=== PATIENT | female | born 1950 | race Caucasian/White ===

== ENCOUNTER 2016-12-26 11:57 | Emergency (ER) | payer MEDICAID ==
[2016-12-26] MEDS ORDERED: HYDROmorphone 1 MG/ML SYRINGE IVP STA (12:36)
[2016-12-26] MEDS ORDERED: ONDANSETRON 4 MG/2 ML VIAL IVP STA (12:36)
[2016-12-26] MEDS ORDERED: ONDANSETRON 4 MG/2 ML VIAL ONE (13:05)
[2016-12-26] MEDS ORDERED: HYDROmorphone 1 MG/ML SYRINGE ONE (13:05)
== END 2016-12-26 14:37 | disposition home or self-care (01) ==
DX: R10.31 Right lower quadrant pain (principal); I10 Essential (primary) hypertension
CPT/HCPCS: 36415; 74177; 80053; 81003; 83690; 85025; 96374; 96375; 99283; 99284; J1170

== ENCOUNTER 2017-04-22 18:26 | Emergency (ER) | payer MEDICAID ==
[2017-04-22] MEDS ORDERED: HYDROmorphone 1 MG/ML SYRINGE IVP STA (20:04)
[2017-04-22] MEDS ORDERED: PROMETHAZINE 25 MG/1 ML VIAL IM STA (20:04)
[2017-04-22] MEDS ORDERED: DEXAMETHASONE 10 MG/ML VIAL PO STA (20:04)
[2017-04-22] MEDS ORDERED: DEXAMETHASONE 10 MG/ML VIAL ONE (20:09)
[2017-04-22] MEDS ORDERED: PROMETHAZINE 25 MG/1 ML VIAL ONE (20:09)
[2017-04-22] MEDS ORDERED: HYDROmorphone 1 MG/ML SYRINGE ONE ×2 (20:09→21:21)
[2017-04-22] MEDS ORDERED: HYDROmorphone 1 MG/ML SYRINGE IM STA ×2 (20:16→21:18)
--- NOTE | 2017-04-22 21:48 | ED Physician Documentation ---
PD HPI BACK PAIN - Stated complaint Stated Complaint: BACK PX - Chief complaint Chief Complaint: Back Pain - History obtained from History obtained from: Patient - History of Present Illness Timing - onset: Today Timing - details: Still present Location: Lower Quality: Pain, Similar to prior episodes Associated symptoms: No: Fever, Weakness, Numbness, Incontinent of urine Worsened by: Movement Similar symptoms before: Diagnosis (degenerative disc disease) - Treatment prior to arrival Treatment prior to arrival: Flexeril - Additional information Additional information: The patient is a 66-year-old female who presents with low back pain that started this morning, and has persisted throughout the day. She denies any recent traumatic injury, or activity different from usual. She denies fever, numbness, weakness, dysuria, or urinary incontinence. She has taken Flexeril without relief. She has undergone workup in the past for similar symptoms and has been diagnosed with degenerative disc disease. She was last seen here with similar symptoms about 6 months ago. Review of Systems Constitutional: denies: Fever Nose: denies: Congestion Throat: denies: Sore throat Cardiac: denies: Chest pain / pressure Respiratory: denies: Dyspnea, Cough GI: denies: Abdominal Pain, Nausea, Vomiting : denies: Dysuria, Incontinent Skin: denies: Rash Musculoskeletal: reports: Back pain. denies: Neck pain, Extremity swelling Neurologic: denies: Focal weakness, Numbness, Headache PD PAST MEDICAL HISTORY - Past Medical History Cardiovascular: Hypertension Musculoskeletal: Chronic back pain - Past Surgical History Past Surgical History: Yes General: Cholecystectomy Ortho: Spine surgery /[employer]: Hysterectomy - Present Medications Home Medications: Ambulatory Orders Medication Instructions Recorded Confirmed Cyclobenzaprine [Flexeril] 10 mg PO TID PRN #20 tablet 11/09/16 04/22/17 amLODIPine [Norvasc] 10 mg PO DAILY 11/09/16 04/22/17 Cyclobenzaprine [Flexeril] 10 mg PO TID PRN #20 tablet 04/22/17 HYDROcod/ACETAM 5/325 [[place] 5/325] 1 - 2 ea PO Q6H PRN #15 tablet 04/22/17 - Allergies Allergies/Adverse Reactions: Allergies Allergy/AdvReac Type Severity Reaction Status Date / Time naproxen [From Naprosyn] Allergy hyperventil Verified 04/22/17 18:43 ates - Social History Does the pt smoke?: No Smoking Status: Never smoker Does the pt drink ETOH?: Yes Does the pt have substance abuse?: No - Immunizations Immunizations are current?: Yes - POLST Patient has POLST: No PD ED PE NORMAL - Vitals Vital signs reviewed: Yes (hypertensive) - General General: Alert and oriented X 3, Other (overweight) - HEENT HEENT: Atraumatic, Pharynx benign - Neck Neck: No bony TTP, No adenopathy, No JVD - Cardiac Cardiac: RRR, No murmur - Respiratory Respiratory: No respiratory distress, Clear bilaterally - Abdomen Abdomen: Soft - Back Back: No CVA TTP, No spinal TTP, Other (Tenderness to palpation in the paralumbar musculature bilaterally. No tenderness to palpation along the spinous processes.) - Derm Derm: No rash - Extremities Extremities: No edema, No calf tenderness / cord, Other (Straight leg raise test is negative bilaterally.) - Neuro Neuro: Alert and oriented X 3, No motor deficit, No sensory deficit Results - Vitals Vitals: Oxygen O2 Source Room air PD MEDICAL DECISION MAKING - ED course Complexity details: reviewed old records, re-evaluated patient, considered differential, d/w patient, d/w family ED course: The patient's presentation is most consistent with acute exacerbation of recurrent low back pain. Her presentation does not suggest epidural abscess, cauda equina syndrome, or spinal stenosis. Treatment in the emergency department included administration of dexamethasone 10 mg orally, Phenergan 12.5 mg IM, and hydromorphone 1 mg IM 2. Her symptoms markedly improved with the above treatment. She is being discharged with prescription for Flexeril and Vicodin, 15 tablets. I discussed with her symptomatic treatment, outpatient follow-up, as well as potentially worrisome signs or symptoms that should prompt reevaluation in the emergency department. Departure - Departure Disposition: 01 Home, Self Care Clinical Impression: Back pain Qualifiers: Back pain location: low back pain Chronicity: acute Back pain laterality: bilateral Sciatica presence: without sciatica Qualified Code(s): M54.5 - Low back pain Condition: Stable Instructions: ED Spasm Back No Trauma Follow-Up: Bam Barajas MD [Primary Care Provider] - Prescriptions: Cyclobenzaprine [Flexeril] 10 mg PO TID PRN #20 tablet PRN Reason: Spasms HYDROcod/ACETAM 5/325 [[place] 5/325] 1 - 2 ea PO Q6H PRN #15 tablet PRN Reason: Pain Comments: Apply icepack to your lower back intermittently for the next 3 or 4 days. You can use Vicodin as prescribed if needed for pain. You can use Flexeril as prescribed as needed for muscle spasms. Let pain be your guide to activity level. Follow up with your primary physician within 2 weeks. Call to schedule an appointment. Return to the emergency department if you develop increasing pain, fever, or otherwise worsening symptoms. Discharge Date/Time: 04/22/17 21:54
[2017-04-22 21:53] VITALS: BP 159/85
== END 2017-04-22 21:54 | disposition home or self-care (01) ==
LOC: ED 18:26
DX: M54.5 Low back pain (principal); M51.36 Other intervertebral disc degeneration, lumbar region; E66.3 Overweight; I10 Essential (primary) hypertension; Z68.31 Body mass index [BMI] 31.0-31.9, adult
CPT/HCPCS: 96372; 99283; J1170

== ENCOUNTER 2017-05-24 09:53 | Outpatient (CLI) | payer MEDICAID ==
[2017-05-24 13:34] LABS: BASOPHILS # (AUTO) 0.1 10^3/uL (0.0-0.1); EOSINOPHILS # (AUTO) 0.1 10^3/uL (0.0-0.7); HGB - HEMOGLOBIN 13.8 g/dL (12.0-16.0); LYMPHOCYTES # (AUTO) 1.9 10^3/uL (1.5-3.5); MEAN CORPUSCULAR VOLUME 82.8 fL (81.0-99.0); MONOCYTES # (AUTO) 0.6 10^3/uL (0.0-1.0)
[2017-05-24 13:36] LABS: BASOPHILS % (AUTO) 1.1 %; EOSINOPHILS % (AUTO) 1.4 %; HCT - HEMATOCRIT 40.6 % (37.0-47.0); LYMPHOCYTES % (AUTO) 30.3 %; MEAN CORPUSCULAR HEMOGLOBIN 28.2 pg (27.0-31.0); MEAN PLATELET VOLUME 8.5 fL (7.9-10.8); MONOCYTES % (AUTO) 9.5 %; NEUTROPHILS # (AUTO) 3.5 10^3/uL (1.5-6.6); NEUTROPHILS % (AUTO) 57.7 %; NUCLEATED RED BLOOD CELLS AUTO 0.1 /100WBC; RED CELL DISTRIBUTION WIDTH 14.3 % (12.0-15.0); UNCORRECTED WHITE BLOOD COUNT 6.1 x10^3/uL; WHITE BLOOD COUNT 6.1 x10^3/uL (4.8-10.8)
[2017-05-24 13:56] LABS: ALBUMIN/GLOBULIN RATIO 1.4 (1.0-2.2); BILIRUBIN,TOTAL 0.8 mg/dL (0.2-1.0); BUN - BLOOD UREA NITROGEN 22 mg/dL (6-20); CALCIUM 9.4 mg/dL (8.5-10.3); CARBON DIOXIDE - CO2 23 mmol/L (21-32); CHLORIDE 103 mmol/L (101-111); CHOL/HDL RATIO 4.4 (<4.4); CHOLESTEROL 218 mg/dL; CREATININE 0.5 mg/dL (0.4-1.0); GFR - MDRD 124 (>89); GLUCOSE 116 mg/dL (70-100); HDL CHOLESTEROL 49 mg/dL; LDL/HDL RATIO 3.1 (<4.4); POTASSIUM 3.4 mmol/L (3.5-5.0); SODIUM 135 mmol/L (135-145); TOTAL PROTEIN 7.5 g/dL (6.7-8.2); TRIGLYCERIDES 84 mg/dL; VLDL CHOLESTEROL 17 mg/dL
== END 2017-05-24 09:54 | disposition home or self-care (01) ==
LOC: LAB.N 09:53
PROVIDERS: ATTEND Family Medicine
DX: I10 Essential (primary) hypertension (principal)
CPT/HCPCS: 36415; 80050; 80061

== ENCOUNTER 2018-02-07 15:02 | Outpatient (CLI) | payer MEDICARE, MEDICAID ==
[2018-02-07 19:23] LABS: CALCIUM 9.4 mg/dL (8.5-10.3); CREATININE 0.8 mg/dL (0.4-1.0)
== END 2018-02-07 15:03 | disposition home or self-care (01) ==
LOC: LAB.N 15:02
PROVIDERS: ATTEND Family Medicine
DX: E87.6 Hypokalemia (principal); I10 Essential (primary) hypertension
CPT/HCPCS: 36415; 80048

== ENCOUNTER 2018-06-12 14:35 | Outpatient (CLI) | payer MEDICARE, MEDICAID ==
[2018-06-12 19:15] LABS: ALBUMIN 3.9 g/dL (3.2-5.5); ALBUMIN/GLOBULIN RATIO 1.1 (1.0-2.2); ALKALINE PHOSPHATASE 66 IU/L (42-121); ALT ALANINE AMINOTRANSFERASE 18 IU/L (10-60); AST ASPARTATE AMINOTRANSFERASE 24 IU/L (10-42); BILIRUBIN,TOTAL 0.6 mg/dL (0.2-1.0); BUN - BLOOD UREA NITROGEN 12 mg/dL (6-20); CALCIUM 9.1 mg/dL (8.5-10.3); CARBON DIOXIDE - CO2 27 mmol/L (21-32); CHLORIDE 104 mmol/L (101-111); CHOL/HDL RATIO 5.5 (<4.4); CHOLESTEROL 226 mg/dL; CREATININE 0.6 mg/dL (0.4-1.0); GFR - MDRD 100 (>89); GLUCOSE 79 mg/dL (70-100); HDL CHOLESTEROL 41 mg/dL; LDL CHOLESTEROL,CALCULATED 152 mg/dL; LDL/HDL RATIO 3.7 (<4.4); SODIUM 138 mmol/L (135-145); TOTAL PROTEIN 7.4 g/dL (6.7-8.2); VLDL CHOLESTEROL 33 mg/dL
== END 2018-06-12 14:36 ==
LOC: LAB.N 14:35
PROVIDERS: ATTEND Family Medicine
DX: I10 Essential (primary) hypertension (principal); Z51.81 Encounter for therapeutic drug level monitoring
CPT/HCPCS: 36415; 80053; 80061; 83721

== ENCOUNTER 2018-12-09 17:59 | Outpatient (CLI) | payer MEDICARE, MEDICAID | END 2018-12-09 18:00 | disposition critical access hospital (66) | LOC: EMS 17:59 | PROVIDERS: ATTEND Surgery | DX: M62.81 Muscle weakness (generalized) (principal); R29.810 Facial weakness | CPT/HCPCS: A0425; A0429 ==

== ENCOUNTER 2018-12-09 18:15 | Emergency (ER) | payer MEDICARE, MEDICAID ==
[2018-12-09] MEDS ORDERED: ASPIRIN CHEW 81 MG TABLET PO STA (18:26)
[2018-12-09 18:35] LABS: BASOPHILS # (AUTO) 0.1 10^3/uL (0.0-0.1); BASOPHILS % (AUTO) 0.6 %; HGB - HEMOGLOBIN 15.1 g/dL (12.0-16.0); LYMPHOCYTES # (AUTO) 1.1 10^3/uL (1.5-3.5); LYMPHOCYTES % (AUTO) 11.5 %; MEAN CORPUSCULAR HEMOGLOBIN 28.4 pg (27.0-31.0); MEAN CORPUSCULAR HGB CONC 32.8 g/dL (32.0-36.0); MEAN CORPUSCULAR VOLUME 86.6 fL (81.0-99.0); MONOCYTES # (AUTO) 0.7 10^3/uL (0.0-1.0); MONOCYTES % (AUTO) 7.1 %; NEUTROPHILS % (AUTO) 80.8 %; PLT - PLATELET COUNT 269 10^3/uL (130-450); RED BLOOD COUNT 5.31 10^6/uL (4.20-5.40); WHITE BLOOD COUNT 9.9 x10^3/uL (4.8-10.8)
[2018-12-09 18:47] LABS: ALBUMIN 4.2 g/dL (3.2-5.5); ALBUMIN/GLOBULIN RATIO 1.2 (1.0-2.2); BILIRUBIN,TOTAL 0.6 mg/dL (0.2-1.0); CALCIUM 9.9 mg/dL (8.5-10.3); CREATININE 0.5 mg/dL (0.4-1.0); INR 1.1 (0.8-1.2); TOTAL PROTEIN 7.7 g/dL (6.7-8.2)
[2018-12-09] MEDS ORDERED: IOVERSOL 320 100 ML VIAL IVP ONE ×2 (18:50→19:18)
--- NOTE | 2018-12-09 19:33 | CT Report ---
Reason: Left sided weakness Procedure Date: 12/09/2018 Accession Number: [id number] / [id number] Procedure: CT - Head W/O CPT Code: FULL RESULT: EXAM: CT HEAD WITHOUT CONTRAST. EXAM DATE: 12/09/2018 07:10 PM. CLINICAL HISTORY: Left-sided weakness. COMPARISON: CT scan of the head without contrast 07/16/2010. TECHNIQUE: Multiaxial CT images were obtained from the foramen magnum to the vertex. Reformats: Sagittal and coronal. IV contrast: None. In accordance with CT protocol optimization, one or more of the following dose reduction techniques were utilized for this exam: automated exposure control, adjustment of mA and/or KV based on patient size, or use of iterative reconstructive technique. FINDINGS: The imaged portions of the paranasal sinuses are normally aerated. The bilateral mastoid air cells are normally aerated. There is no acute fracture of the calvaria. There is loss of monzon-white differentiation within the right lentiform nucleus extending into the anterior limb of the right internal capsule, right caudate nucleus and the right external capsule and extending into the right striate cortex (20, 2). This is suspicious for an area of early subacute cerebral infarction. Recommend correlation with onset of the patient's clinical symptoms. The ventricular size is normal. There was no evidence of overt hemorrhagic transformation within this area of suspected cerebral infarction. The ASPECTS score is 6. IMPRESSION: 1. There is loss of monzon-white differentiation within the right lentiform nucleus, anterior limb of the right internal capsule, right caudate nucleus, right external capsule, and right striate cortex suspicious for an area of early subacute cerebral infarction. 2. The ASPECTS score is 6. The critical result notification system was initiated by Dr. Gumaro Antoine at 19:29 hrs on 12/09/18. The above findings were discussed with Zheng Leslie by Dr. Gumaro Antoine at 19:31 hrs on 12/09/18.
--- NOTE | 2018-12-09 19:38 | XRAY Report ---
Reason: Chest Pain Procedure Date: 12/09/2018 Accession Number: [id number] / [id number] Procedure: XR - Chest 1 View X-Ray CPT Code: 19472 FULL RESULT: EXAM: CHEST RADIOGRAPHY EXAM DATE: 12/09/2018 07:08 PM. CLINICAL HISTORY: Chest Pain. COMPARISON: None. TECHNIQUE: 1 view. FINDINGS: Lungs/Pleura: No focal opacities evident. No pleural effusion. No pneumothorax. Mediastinum: Within exam limitations, the cardiomediastinal contour is normal. Other: None. IMPRESSION: Normal single view chest. RADIA
--- NOTE | 2018-12-09 19:52 | CT Report ---
Reason: L sided facial droop, L neck pain Procedure Date: 12/09/2018 Accession Number: [id number] / [id number] Procedure: CT - Neck Angio CPT Code: FULL RESULT: EXAM: CT ANGIOGRAM NECK. EXAM DATE: 12/09/2018 07:16 PM. CLINICAL HISTORY: Left-sided facial droop, left neck pain. COMPARISON: None. TECHNIQUE: Routine axial helical imaging was performed from the skull base through the aortic arch. Reconstructions: Routine multiplanar 3D MIP reconstructions. IV Contrast: 80 mL OPTIRAY 320. Evaluation of arterial stenosis is based on a NASCET method of measurement. In accordance with CT protocol optimization, one or more of the following dose reduction techniques were utilized for this exam: automated exposure control, adjustment of mA and/or KV based on patient size, or use of iterative reconstructive technique. FINDINGS: There is respiratory motion superimposed on the images of the lung apices. There is subsegmental atelectasis demonstrated within the bilateral lung apices. There are surgical changes of anterior fusion from C3-C4. There are multilevel moderate degenerative changes of the cervical spine. The bilateral mastoid air cells are normally aerated. The imaged portions of the paranasal sinuses are normally aerated. The imaged portions of the orbits are normal in appearance. The right and left parotid spaces enhance symmetrically. The service sprinkler helper spaces exhibit symmetric densities. The openings of the eustachian tubes are normally aerated. The torus tubarius are symmetric. The fossa of Rosenmuller are normally aerated bilaterally. The palatine tonsils exhibit symmetric hypertrophy. The extrinsic and the intrinsic muscles of the tongue exhibit symmetric densities. There is no significant adenopathy in the level IA davonte chain. There is no significant adenopathy within the bilateral level IB davonte chains. The bilateral submandibular glands exhibit symmetric size and enhancement. The vallecula are symmetric. The free and fixed margins of the epiglottis are normal in appearance. The preepiglottic space and paraglottic spaces exhibit normal fat densities. The false and true cords are normal in appearance. The subglottic space is normal. The bilateral thyroid lobes enhance symmetrically. There is dense calcific plaquing of the origin of the great vessels. There is between 25-50% stenosis at the origin of the left subclavian artery. There is no significant adenopathy by size criteria in the bilateral deep cervical or spinal accessory chains. There is a combination of soft and calcific plaquing present at the right carotid bifurcation. There is hypodensity likely reflecting an area of mural thrombus present at the level of the right carotid bulb extending superiorly into the proximal right extracranial internal carotid artery and extending superiorly to the distal right extracranial internal carotid artery. There is also reduction of the caliber of the vessel compared to the left. This combination of findings is suspicious for a possible dissection with areas of thrombosis versus an elongated eccentric thrombus demonstrated along the posterior wall of the right carotid bulb and proximal extracranial right internal carotid artery. There is a short segment of focal narrowing of the distal extracranial right internal carotid artery measuring up to 50% (283, 2). This could represent either a small focus of soft plaquing versus possibly a short segment of dissection. There is of a small focus of calcific plaquing of the left carotid bifurcation producing less than 25% stenosis. The left carotid bulb is without flow limiting stenosis. The proximal extracranial left internal carotid artery exhibits a small area of soft plaquing producing a less than 25% stenosis using NASCET criteria. The right vertebral artery V1, V2, V3 segments are without flow limiting stenosis. There is mild narrowing at the origin of the left vertebral artery measuring between 25-50%. The left V2 and V3 segments of the left vertebral artery are without flow limiting stenosis. IMPRESSION: 1. There is an area of mural thrombus demonstrated along the posterior aspect of the right carotid bulb and the proximal extracranial right internal carotid artery which may be secondary to underlying dissection versus less likely an elongated eccentric thrombus. Given the irregularity of the vessel and the reduced caliber of the right carotid within the neck a dissection with areas of subsequent thrombus would be favored. Recommend correlation. 2. There is less than 25% stenosis from calcific plaquing at the left carotid bifurcation. The above critical findings were discussed with the ordering physician Dr. Zheng Leslie by Dr. Antoine at 7:47 PM on 12/09/2018.
--- NOTE | 2018-12-09 20:18 | CT Report ---
Reason: Left sided weakness Procedure Date: 12/09/2018 Accession Number: [id number] / [id number] Procedure: CT - Head Angio CPT Code: FULL RESULT: EXAM: CT ANGIOGRAM HEAD. CT SCAN OF THE HEAD WITH CONTRAST. EXAM DATE: 12/09/2018 07:13 PM CLINICAL HISTORY: Left-sided weakness. COMPARISON: CTA of the neck performed earlier on the same day and CT scan of the head without contrast performed earlier on the same day. TECHNIQUE: - CT Scan Head: Using a multidetector scanner, axial images were acquired from the foramen magnum to the skull vertex prior to and following contrast administration. - CT Angiogram: Using a multidetector scanner, high-resolution axial images were acquired from the skull base through vertex following rapid infusion of intravenous contrast. Reformats: Multiplanar MIP reformats were reconstructed. Nascet criteria used for stenosis measurement. IV Contrast: 80 mL OPTIRAY 320. In accordance with CT protocol optimization, one or more of the following dose reduction techniques were utilized for this exam: automated exposure control, adjustment of mA and/or KV based on patient size, or use of iterative reconstructive technique. FINDINGS: CT scan of the head with contrast: The images are degraded by motion. There is normal enhancement within the deep venous sinuses. There are areas of suggested hyperdensity within the left frontal convexity (19-22). This appears to be secondary to volume averaging due to the superimposed areas of motion. There is no hyperdensity demonstrated on the accompanying noncontrast CT of the head. There is normal enhancement within the deep venous sinuses. CTA of the head: The right vertebral artery intradural segment is smooth and nonstenotic. The left vertebral artery intradural segment is smooth and nonstenotic. The right posterior inferior cerebellar artery is without flow-limiting stenosis. The left vertebral artery intradural segment is smooth and nonstenotic. The left posterior-inferior cerebellar artery is without flow-limiting stenosis. The right anterior inferior cerebellar artery is smooth and nonstenotic. The left anterior inferior cerebellar artery is smooth and nonstenotic. The basilar artery is without flow-limiting stenosis. The right superior cerebellar artery is without flow-limiting stenosis. The left superior cerebellar artery is without flow-limiting stenosis. The right intracranial internal carotid artery exhibits irregularity and reduced caliber compared to the left intracranial internal carotid artery. This may reflect changes of a dissection. There is calcific plaquing of the right cavernous intracranial internal carotid artery as well as the right supraclinoid segment producing multiple areas of stenosis measuring 25% to slightly greater. The left intracranial internal carotid artery is smooth and nonstenotic. There is thrombosis of the right M1 segment of the right middle cerebral artery. However there does appear to be enhancement within the proximal right insular branches of the right middle cerebral artery. This may be secondary to collateral flow. The left M1 and proximal M2 segments of the left middle cerebral artery are smooth and nonstenotic. There is a hypoplastic right A1 segment of the right anterior cerebral artery. The left A1 segment is smooth and nonstenotic. There is a small anterior communicating artery. The right A2 segment of the right anterior cerebral artery is smooth and nonstenotic. The left A2 segment of the left anterior cerebral artery is smooth and nonstenotic. There is normal enhancement within the deep venous sinuses. IMPRESSION: 1. 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 There is irregularity of the right intracranial internal carotid artery as well as the right extracranial internal carotid artery and there are areas of mural thrombus beginning from the right carotid bulb extending to the mid right extracranial internal carotid artery. 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 The dissection would extend from the right carotid bulb to the distal right supraclinoid segment. 2. There is no evidence of cerebral aneurysm. The above critical findings were discussed with the ordering physician Dr. Zheng Leslie by Dr. Antoine at 7:47 PM on 12/09/2018.
[2018-12-09] MEDS ORDERED: SODIUM CHLORIDE 0.9% 500 ML IV ONE (20:20)
--- NOTE | 2018-12-09 20:53 | ED Physician Documentation ---
PD HPI FOCAL NEURO - Stated complaint Stated Complaint: Left sided weakness - Chief complaint Chief Complaint: Neuro - History obtained from History obtained from: Patient - History of Present Illness Timing - onset: Other (Patient last normal was 22 hours ago) Timing - duration: Hours (22) Timing - details: Abrupt onset Time of symptom onset unknown: Time of onset unknown Severity of deficit: Moderate Weakness: Face, Arm, Leg, Left Numbness: No: Face, Arm, Hand Associated symptoms: Fall. No: Headache, Nausea / vomiting, Seizure, Syncope, Other Contributing factors: negative: Anticoagulated, Vascular dz, Atrial fibrillation Baseline status: positive: A&OX3, ambulatory, indep (Patient went to bed normal, woke up with left sided weakness, fell getting out of bed. Called EMS in the afternoon because she had not been able to get up.) Review of Systems Ten Systems: 10 systems reviewed and negative Constitutional: reports: Reviewed and negative Eyes: reports: Reviewed and negative Ears: reports: Reviewed and negative Nose: reports: Reviewed and negative Throat: reports: Reviewed and negative Cardiac: reports: Reviewed and negative Respiratory: reports: Reviewed and negative GI: reports: Reviewed and negative : reports: Reviewed and negative Skin: reports: Reviewed and negative Musculoskeletal: reports: Reviewed and negative Neurologic: reports: Focal weakness Psychiatric: reports: Reviewed and negative Endocrine: reports: Reviewed and negative Immunocompromised: reports: Reviewed and negative PD PAST MEDICAL HISTORY - Past Medical History Cardiovascular: Hypertension Musculoskeletal: Chronic back pain - Past Surgical History Past Surgical History: Yes General: Cholecystectomy 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 - Present Medications Home Medications: Ambulatory Orders Medication Instructions Recorded Confirmed amLODIPine [Norvasc] 10 mg PO DAILY 11/09/16 09/29/17 Cyclobenzaprine [Flexeril] 10 mg PO TID PRN #20 tablet 04/22/17 09/29/17 Hydrochlorothiazide 12.5 mg pe PO DAILY 09/29/17 09/29/17 Lidocaine Patch 5% [Lidoderm Patch] 1 patch TOP DAILY PRN #10 patch 09/29/17 Meloxicam [Mobic] 15 mg PO DAILY PRN #20 tablet 09/29/17 - Allergies Allergies/Adverse Reactions: Allergies Allergy/AdvReac Type Severity Reaction Status Date / Time naproxen [From Naprosyn] Allergy hyperventil Verified 12/09/18 18:29 ates - Living Situation Living Situation: reports: Alone Living Arrangement: reports: At home - Social History Does the pt smoke?: No Smoking Status: Never smoker Does the pt drink ETOH?: Yes Does the pt have substance abuse?: No - Family History Family history: reports: Other (Reviewed and not relevant) - Immunizations Immunizations are current?: Yes - POLST Patient has POLST: No PD ED PE NORMAL - Vitals Vital signs reviewed: Yes - General General: Alert and oriented X 3, No acute distress - HEENT HEENT: PERRL - Neck Neck: Supple, no meningeal sign - Cardiac Cardiac: RRR, No murmur - Respiratory Respiratory: Clear bilaterally - Abdomen Abdomen: Normal bowel sounds, Soft, Non tender, Non distended - Derm Derm: Warm and dry - Extremities Extremities: No deformity - Neuro Neuro: Alert and oriented X 3, Other (Left facial droop, LUE and RUE weak to gravity, NIHSS of 8) - Psych Psych: Normal mood, Normal affect NIHSS - Time Time: 22:00 (Went to bed normal last night) - Level of Consciousness Level of consciousness: (0) Alert, Keenly responsive LOC Questions: (0) Answers both Q's correct LOC Commands: (0) Performs both correctly - Gaze Best Gaze: (0) Normal - Visual Visual: (0) No loss - Facial Palsy Facial Palsy: (2) Partial paralysis - Motor Arms (both separate) Motor Arm (right): (0) No drift Motor Arm (left): (2) Some effort against gravity - Motor Legs (both separate) Motor Leg (right): (0) No drift Motor Leg (left): (2) Some effort against gravity - Limb Ataxia Limb Ataxia: (1) Present in 1 limb - Sensory Sensory: (0) Normal - Best Language Best Language: (0) No aphasia - Dysarthria Dysarthria: (1) [id number] dysarthria - Extinction and Inattention (formally neg Extinction and inattention: (0) No abnormality - Total Score/Results Total Score/Result: 8 Results - Vitals Vitals: Vital Signs - 24 hr 12/09/18 12/09/18 12/09/18 18:16 19:20 19:36 Temperature 37.2 C Heart Rate 110 H 106 H 96 Respiratory 16 20 19 Rate Blood Pressure 143/98 H 142/87 H 142/87 H O2 Saturation 100 99 99 12/09/18 20:30 Temperature Heart Rate 117 H Respiratory 18 Rate Blood Pressure 151/77 H O2 Saturation 100 Oxygen O2 Source Room air - EKG (time done) 1827 Rhythm: Sinus tachycardia [place]: Normal Intervals: Normal MO QRS: Normal Ischemia: Normal ST segments. No: T wave inversion - Labs Labs: Laboratory Tests 12/09/18 12/09/18 12/09/18 18:20 18:20 18:20 WBC 9.9 RBC 5.31 Hgb 15.1 Hct 46.0 MCV 86.6 MCH 28.4 MCHC 32.8 RDW 14.0 Plt Count 269 MPV 8.0 Neut # (Auto) 8.0 H Lymph # (Auto) 1.1 L [place] # (Auto) 0.7 Eos # (Auto) 0.0 Baso # (Auto) 0.1 Absolute Nucleated RBC 0.00 Nucleated RBC % 0.0 PT INR APTT Sodium 137 Potassium 4.1 Chloride 104 Carbon Dioxide 25 Anion Gap 8.0 BUN 11 Creatinine 0.5 Estimated GFR (MDRD) 124 Glucose 118 H Calcium 9.9 Total Bilirubin 0.6 AST 33 ALT 19 Alkaline Phosphatase 72 Troponin I < 0.04 Total Protein 7.7 Albumin 4.2 Globulin 3.5 Albumin/Globulin Ratio 1.2 Lipase 22 12/09/18 18:20 WBC RBC Hgb Hct MCV MCH MCHC RDW Plt Count MPV Neut # (Auto) Lymph # (Auto) [place] # (Auto) Eos # (Auto) Baso # (Auto) Absolute Nucleated RBC Nucleated RBC % PT 12.0 INR 1.1 APTT 28.5 Sodium Potassium Chloride Carbon Dioxide Anion Gap BUN Creatinine Estimated GFR (MDRD) Glucose Calcium Total Bilirubin AST ALT Alkaline Phosphatase Troponin I Total Protein Albumin Globulin Albumin/Globulin Ratio Lipase PD MEDICAL DECISION MAKING - ED course Complexity details: reviewed old records, reviewed results, re-evaluated patient, considered differential, d/w patient, d/w 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 Patient has a history of high blood pressure only. Patient went to bed normal and woke up with symptoms this morning and fell getting out of bed. Patient given full dose of aspirin. 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 Patient is not a TPA candidate due to dissection as well as time course. Stroke neurology Dr. Wade Solorzano at [facility] was consulted who recommended 500 bolus of normal saline, no TPA, aspirin, immediate transfer. Patient transferred by air. - Critical Care Time(min): 30 Time Includes: Direct patient care, Review records, Reassess patient, Document care, Coordinate care, Medical consult, See progress note Data interpretation: Labs, Pulse ox, Cardiac output, See progress note Procedures included in critical care time: See progress note Procedures excluded from critical care time: See progress note - TPA CVA checklist Inclusion crititeria: negative: Onset know < 4.5 hr Departure - Departure Disposition: 02 Transfer Acute Care Hosp Clinical Impression: Carotid artery dissection Cerebrovascular accident (CVA) Qualifiers: CVA mechanism: embolism Precerebral and cerebral artery: middle cerebral artery Laterality of affected vessel: right Qualified Code(s): I63.411 - Cerebral infarction due to embolism of right middle cerebral artery Condition: Critical
[2018-12-09 22:01] VITALS: BP 145/67
--- NOTE | 2018-12-09 23:02 | CT Report ---
Reason: Stroke monitoring Procedure Date: 12/09/2018 Accession Number: [id number] / [id number] Procedure: CT - Head W/O CPT Code: FULL RESULT: EXAM: CT HEAD EXAM DATE: 12/09/2018 10:36 PM. CLINICAL HISTORY: Right basal ganglia infarct. COMPARISON: CT HEAD ANGIO 12/09/2018 6:47 PM, CT HEAD W/O 12/09/2018 6:47 PM. TECHNIQUE: Multiaxial CT images were obtained from the foramen magnum to the vertex. Reformats: Sagittal and coronal. IV contrast: None. In accordance with CT protocol optimization, one or more of the following dose reduction techniques were utilized for this exam: automated exposure control, adjustment of mA and/or KV based on patient size, or use of iterative reconstructive technique. FINDINGS: Parenchyma: Loss of monzon-white matter differentiation is again demonstrated in the right basal ganglia, consistent with an acute right MCA territory infarct. No definite hemorrhagic transformation of the infarct is seen. The extent of the infarct appears stable compared to the brain CT from earlier today. The monzon-white matter differentiation remains distinct elsewhere in the brain. Extraaxial Spaces: Normal for age. No subdural or epidural collections identified. Ventricles: The ventricles and cortical sulci are mildly enlarged, consistent with age-related tissue loss. Right-sided cerebral edema causes narrowing of the right lateral ventricle without midline shift. These findings are stable. Sinuses and orbits: Imaged paranasal sinuses, orbits, and mastoids show no significant abnormality. Bones: No evidence of fracture or calvarial defect. Other: Mild intracranial atherosclerosis is present. IMPRESSION: 1. Stable appearance and configuration of the right basal ganglia infarct. 2. Mild narrowing of the right lateral ventricle is again noted without midline shift. 3. No hemorrhagic transformation of the infarct is seen. RADIA
== END 2018-12-09 22:48 | disposition short-term general hospital (02) ==
LOC: EDUNIT# → ED 18:15
DX: I77.71 Dissection of carotid artery (principal); I63.411 Cerebral infarction due to embolism of right middle cerebral artery; I48.91 Unspecified atrial fibrillation; I10 Essential (primary) hypertension
CPT/HCPCS: 36415; 70450; 70496; 70498; 71045; 80053; 83690; 84484; 85025; 85610; 85730; 93005; 96360; 99284; 99291; A9270; Q9967; 99285

== ENCOUNTER 2018-12-09 22:52 | Outpatient (CLI) | payer MEDICARE, MEDICAID | END 2018-12-09 22:53 | disposition short-term general hospital (02) | LOC: EMS 22:52 | PROVIDERS: ATTEND Surgery | DX: I77.71 Dissection of carotid artery (principal) | CPT/HCPCS: A0425; A0426 ==

== ENCOUNTER 2018-12-27 20:58 | Outpatient (CLI) | payer MEDICARE, MEDICAID | END 2018-12-27 20:59 | disposition critical access hospital (66) | LOC: EMS 20:58 | PROVIDERS: ATTEND Surgery | DX: S01.111A Laceration without foreign body of right eyelid and periocular area, initial encounter (principal); M25.522 Pain in left elbow; M25.521 Pain in right elbow; M25.561 Pain in right knee; W10.8XXA Fall (on) (from) other stairs and steps, initial encounter; Y92.039 Unspecified place in apartment as the place of occurrence of the external cause | CPT/HCPCS: A0425; A0429 ==

== ENCOUNTER 2018-12-27 21:15 | Emergency (ER) | payer MEDICARE, MEDICAID ==
[2018-12-27] MEDS ORDERED: ACETAMINOPHEN 325 MG TABLET PO STA (21:26)
--- NOTE | 2018-12-27 21:40 | ED Physician Documentation ---
PD HPI Fall - Stated complaint Stated Complaint: FALL/8 STAIRS - Chief complaint Chief Complaint: Trauma Hd/Nk - History obtained from History obtained from: Patient, EMS - History of Present Illness Mechanism of injury: Slipped (fell down stairs) Fall distance: Other (on stairs) Where injury occurred: Home Timing - onset: How many hours ago (1) Injury(ies) location: Head. No: Neck, Chest, Abdomen, Back, Right Upper Extremity, Left Uppper Extremity, Right Lower Extremity, Left Lower Extremity, Right Hand, Left Hand, Right Foot, Left Foot Pain level max: 3 Pain level now: 3 Quality of pain: Pain, Aching Associated symptoms: No: LOC, AMS, Amnesia, Seizures, Ear drainage, Nasal drainage, Neck pain, Weakness, Paresthesias, Dyspnea, Nausea / vomiting, Hematemesis, Abdominal distension Symptoms improve with: Rest Worsens with: Movement, Palpation Contributing factors: Anticoagulated (plavix) - Additional information Additional information: Patient was recently admitted to [facility] for a stroke. Started on Plavix a few weeks ago Review of Systems Ten Systems: 10 systems reviewed and negative Constitutional: denies: Fever, Chills Eyes: denies: Decreased vision Ears: denies: Loss of hearing, Ear pain Nose: denies: Rhinorrhea / runny nose, Congestion Respiratory: denies: Cough GI: denies: Vomiting, Diarrhea Skin: denies: Rash Musculoskeletal: reports: Back pain (Chronic back pain. No change from baseline). denies: Neck pain, Extremity pain Neurologic: reports: Focal weakness (Has residual weakness on the left upper extremity from her stroke, As well as a left-sided facial droop). 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 - Present Medications Home Medications: Ambulatory Orders Medication Instructions Recorded Confirmed amLODIPine [Norvasc] 10 mg PO DAILY 11/09/16 09/29/17 Cyclobenzaprine [Flexeril] 10 mg PO TID PRN #20 tablet 04/22/17 09/29/17 Hydrochlorothiazide 12.5 mg pe PO DAILY 09/29/17 09/29/17 Lidocaine Patch 5% [Lidoderm Patch] 1 patch TOP DAILY PRN #10 patch 09/29/17 Meloxicam [Mobic] 15 mg PO DAILY PRN #20 tablet 09/29/17 - Allergies Allergies/Adverse Reactions: Allergies Allergy/AdvReac Type Severity Reaction Status Date / Time naproxen [From Naprosyn] Allergy hyperventil Verified 12/09/18 18:29 ates - Social History Does the pt smoke?: No Smoking Status: Never smoker Does the pt drink ETOH?: Yes Does the pt have substance abuse?: No - Immunizations Immunizations are current?: Yes - POLST Patient has POLST: No PD ED PE NORMAL - Vitals Vital signs reviewed: Yes - General General: Alert and oriented X 3, No acute distress, Well developed/nourished - HEENT HEENT: PERRL, EOMI, Ears normal, Moist mucous membranes, Pharynx benign, Other (0.5 cm laceration to the forehead, small forehead hematoma.) - Neck Neck: Supple, no meningeal sign, No bony TTP - Cardiac Cardiac: RRR, Strong equal pulses - Respiratory Respiratory: No respiratory distress, Clear bilaterally - Abdomen Abdomen: Soft, Non tender, Non distended - Back Back: No spinal TTP - Derm Derm: Warm and dry, No rash - Extremities Extremities: No deformity, No tenderness to palpate, Normal ROM s pain, Other (Small skin tear to the left elbow) - Neuro Neuro: Alert and oriented X 3, trommel tender 2-12 intact, No motor deficit, No sensory deficit, Normal speech - Psych Psych: Normal mood, Normal affect Results - Vitals Vitals: Vital Signs - 24 hr 12/27/18 12/27/18 12/28/18 21:20 23:11 00:57 Temperature 36.2 C L Heart Rate 106 H 85 83 Respiratory 18 16 18 Rate Blood Pressure 138/75 H 122/62 106/83 H O2 Saturation 98 100 97 Oxygen O2 Source Room air - Rads (name of study) Head CT Radiology: Prelim report reviewed, EMP read contemporaneously, See rad report (Probable very small focus right frontal subarachnoid hemorrhage. Frontal scalp hematoma. . Prior right basal ganglia infarct. ) repeat head Ct Radiology: Prelim report reviewed, EMP read contemporaneously, See rad report (No significant interval change in right subarachnoid hemorrhage and likely infarction in the right basal ganglia. ) PD MEDICAL DECISION MAKING - ED course Complexity details: reviewed results, re-evaluated patient, considered differential, d/w patient, d/w absence management consultant ED course: 68-year-old female status post a trip and fall down the stairs. Her head CT reveals a probable very small focus of right frontal subarachnoid hemorrhage. Because of this I contacted neurosurgery at [facility], Dr. Toscano, Who recom mends repeat head CT in 4 hours if unchanged can hold Plavix for 5 days and discharged home. Patient is GCS 15 and headache is improving. Will hold in the emergency department awaiting repeat head CT 4 hours from the first. Repeat head CT reveals no significant interval change. GCS still 15. Patient would like to go home at this time. Head injury instructions given at bedside to patient and family. Patient counseled regarding signs and symptoms for which I believe and urgent re-evaluation would be necessary. Patient with good understanding of and agreement to plan and is comfortable going home at this time This document was made in part using voice recognition software. While efforts are made to proofread this document, sound alike and grammatical errors may occur. Departure - Departure Disposition: 01 Home, Self Care Clinical Impression: Subarachnoid hemorrhage Head injury Qualifiers: Encounter type: initial encounter Qualified Code(s): S09.90XA - Unspecified injury of head, initial encounter Condition: Good Instructions: ED Head Injury Closed Follow-Up: Dheeraj Coates MD [Primary Care Provider] - Within 3 Days Comments: Hold your Plavix for the next 5 days. Return if you worsen including worsening headaches, vomiting or changes in mental status.
[2018-12-27] MEDS ORDERED: oxyCODONE 5 MG TABLET PO STA (22:23)
--- NOTE | 2018-12-27 22:28 | CT Report ---
Reason: fall, head injury Procedure Date: 12/27/2018 Accession Number: [id number] / [id number] Procedure: CT - Head W/O CPT Code: FULL RESULT: EXAM: CT HEAD EXAM DATE: 12/27/2018 09:40 PM. CLINICAL HISTORY: Fall, head injury. COMPARISON: Head CT 12/09/2018. TECHNIQUE: Multiaxial CT images were obtained from the foramen magnum to the vertex. Reformats: Sagittal and coronal. IV contrast: None. In accordance with CT protocol optimization, one or more of the following dose reduction techniques were utilized for this exam: automated exposure control, adjustment of mA and/or KV based on patient size, or use of iterative reconstructive technique. FINDINGS: Parenchyma: No intraparenchymal hemorrhage. There is a low-density area in the right basal ganglia region (series 3, image 14). Jiménez-white differentiation is otherwise distinct. Extraaxial Spaces: There is a 7 mm hyperdense band and a right lateral frontal sulcus (series 3, image 17). Ventricles: Mild ex-vacuo dilatation of right lateral ventricle. No mass-effect. No midline shift. Sinuses and Orbits: Imaged paranasal sinuses, orbits, and mastoids show no significant abnormality. Bones: No evidence of fracture or calvarial defect. Other: There is a frontal scalp hematoma.. IMPRESSION: 1. Probable very small focus right frontal subarachnoid hemorrhage. 2. Frontal scalp hematoma. 3. Prior right basal ganglia infarct. RADIA The above findings were discussed with Dr. Garsia by Dr. Mathieu Sevilla at 10:26 PM hrs on 12/27/2018.
--- NOTE | 2018-12-28 02:32 | CT Report ---
Reason: head injury, SAH on earlier CT Procedure Date: 12/28/2018 Accession Number: [id number] / [id number] Procedure: CT - Head W/O CPT Code: FULL RESULT: EXAM: CT HEAD EXAM DATE: 12/28/2018 02:07 AM. CLINICAL HISTORY: Head injury, SAH on earlier CT. COMPARISON: HEAD W/O 12/27/2018 9:40 PM. TECHNIQUE: Multiaxial CT images were obtained from the foramen magnum to the vertex. Reformats: Sagittal and coronal. IV contrast: None. In accordance with CT protocol optimization, one or more of the following dose reduction techniques were utilized for this exam: automated exposure control, adjustment of mA and/or KV based on patient size, or use of iterative reconstructive technique. FINDINGS: Parenchyma: No intraparenchymal hemorrhage. Stable hypodensity in the right basal ganglia.. No evidence of mass or midline shift. Jiménez-white differentiation is otherwise distinct. Extraaxial Spaces: Stable tiny right subarachnoid hemorrhage. No new hemorrhage identified. No subdural or epidural collections identified. Ventricles: Stable. No hydrocephalus. Sinuses and Orbits: Imaged paranasal sinuses, orbits, and mastoids show no significant abnormality. Bones: No evidence of fracture or calvarial defect. Other: Stable left frontal scalp hematoma. IMPRESSION: No significant interval change in right subarachnoid hemorrhage and likely infarction in the right basal ganglia. RADIA
[2018-12-28 02:39] VITALS: BP 112/87
== END 2018-12-28 02:50 | disposition home or self-care (01) ==
LOC: EDUNIT# → ED 21:15
DX: S06.6X0A Traumatic subarachnoid hemorrhage without loss of consciousness, initial encounter (principal); S01.81XA Laceration without foreign body of other part of head, initial encounter; S51.012A Laceration without foreign body of left elbow, initial encounter; W10.9XXA Fall (on) (from) unspecified stairs and steps, initial encounter; Y92.009 Unspecified place in unspecified non-institutional (private) residence as the place of occurrence of the external cause; R40.2412 Glasgow coma scale score 13-15, at arrival to emergency department; I69.354 Hemiplegia and hemiparesis following cerebral infarction affecting left non-dominant side; I69.392 Facial weakness following cerebral infarction; I10 Essential (primary) hypertension; Z79.02 Long term (current) use of antithrombotics/antiplatelets
CPT/HCPCS: 70450; 99284; A9270

== ENCOUNTER 2019-01-02 10:47 | Outpatient (CLI) | payer MEDICARE, MEDICAID ==
--- NOTE | 2019-01-02 12:49 | XRAY Report ---
Reason: LBP, unspecified fall Procedure Date: 01/02/2019 Accession Number: [id number] / [id number] Procedure: XRN - Lumbar Spine 2 View CPT Code: FULL RESULT: EXAM: LUMBOSACRAL SPINE RADIOGRAPHY EXAM DATE: 01/02/2019 11:09 AM. CLINICAL HISTORY: LBP, unspecified fall. Fell down steps 15 days ago continued pain. COMPARISONS: LUMBAR SPINE 2 VIEW 11/21/2016 9:38 AM. TECHNIQUE: 3 views. FINDINGS: Alignment: Normal. No spondylolisthesis or scoliosis. Bones: Five [id number] lumbar vertebral bodies are present. No fractures or bone lesions. Disks: Degenerative disk space narrowing at L5-S1 with mild endplate sclerosis and vacuum disk phenomenon. Facets: No degenerative changes. Sacroiliac Joints: Unremarkable. Soft Tissues: Normal. The visualized bowel gas pattern is normal. IMPRESSION: No fracture appreciated. Degenerative disk changes at L5-S1 as described. RADIA
== END 2019-01-02 10:48 | disposition home or self-care (01) ==
LOC: DI.N 10:47
PROVIDERS: ATTEND Nurse Practitioner Gerontology
DX: M51.36 Other intervertebral disc degeneration, lumbar region (principal)
CPT/HCPCS: 72100

== ENCOUNTER 2019-01-23 09:21 | Outpatient (CLI) | payer MEDICARE, MEDICAID ==
[2019-01-23 12:33] LABS: BASOPHILS # (AUTO) 0.1 10^3/uL (0.0-0.1); BASOPHILS % (AUTO) 1.7 %; EOSINOPHILS # (AUTO) 0.1 10^3/uL (0.0-0.7); EOSINOPHILS % (AUTO) 3.4 %; HGB - HEMOGLOBIN 13.2 g/dL (12.0-16.0); LYMPHOCYTES # (AUTO) 1.4 10^3/uL (1.5-3.5); LYMPHOCYTES % (AUTO) 33.3 %; MEAN CORPUSCULAR HEMOGLOBIN 29.2 pg (27.0-31.0); MEAN CORPUSCULAR HGB CONC 33.3 g/dL (32.0-36.0); MEAN CORPUSCULAR VOLUME 87.5 fL (81.0-99.0); MEAN PLATELET VOLUME 8.4 fL (7.9-10.8); MONOCYTES # (AUTO) 0.4 10^3/uL (0.0-1.0); MONOCYTES % (AUTO) 9.8 %; NEUTROPHILS # (AUTO) 2.1 10^3/uL (1.5-6.6); NEUTROPHILS % (AUTO) 51.8 %; PLT - PLATELET COUNT 258 10^3/uL (130-450); RED BLOOD COUNT 4.51 10^6/uL (4.20-5.40); RED CELL DISTRIBUTION WIDTH 15.4 % (12.0-15.0); WHITE BLOOD COUNT 4.1 x10^3/uL (4.8-10.8)
[2019-01-23 13:08] LABS: ALBUMIN 3.7 g/dL (3.2-5.5); ALBUMIN/GLOBULIN RATIO 1.1 (1.0-2.2); ALKALINE PHOSPHATASE 123 IU/L (42-121); ALT ALANINE AMINOTRANSFERASE 147 IU/L (10-60); AST ASPARTATE AMINOTRANSFERASE 105 IU/L (10-42); BILIRUBIN,TOTAL 0.8 mg/dL (0.2-1.0); BUN - BLOOD UREA NITROGEN 14 mg/dL (6-20); CALCIUM 8.9 mg/dL (8.5-10.3); CARBON DIOXIDE - CO2 23 mmol/L (21-32); CHLORIDE 105 mmol/L (101-111); CHOL/HDL RATIO 4.5 (<4.4); CHOLESTEROL 215 mg/dL; CREATININE 0.4 mg/dL (0.4-1.0); GFR - MDRD 160 (>89); GLUCOSE 135 mg/dL (70-100); HDL CHOLESTEROL 48 mg/dL; LDL CHOLESTEROL,CALCULATED 146 mg/dL; SODIUM 137 mmol/L (135-145); TOTAL PROTEIN 7.1 g/dL (6.7-8.2); VLDL CHOLESTEROL 21 mg/dL
== END 2019-01-23 23:59 | disposition home or self-care (01) ==
LOC: LAB.N 09:21
PROVIDERS: ATTEND Nurse Practitioner Gerontology
DX: E78.00 Pure hypercholesterolemia, unspecified (principal); E87.6 Hypokalemia; I10 Essential (primary) hypertension
CPT/HCPCS: 36415; 80053; 80061; 83721; 85025

== ENCOUNTER 2019-02-08 14:23 | Emergency (ER) | payer MEDICARE, MEDICAID ==
[2019-02-08 14:28] VITALS: BP 149/96
--- NOTE | 2019-02-08 14:48 | ED Physician Documentation ---
History of Present Illness - Stated complaint Stated Complaint: HEADACHE/BACK PAIN - Chief complaint Chief Complaint: Back Pain - History obtained from History obtained from: Patient - History of Present Illness Pain level max: 7 - Additonal information Additional information: Patient is a 68-year-old female with history of CVA with left-sided deficits presenting with chronic headache and back pain. Patient suffered a CVA several months ago and is currently under the care of both her primary care physician and neurology. Patient is also attempting to schedule physical therapy and further interventions for her chronic deficits. Patient complains of chronic headache in the back of her head and upper neck, as well as diffuse lower back pain. Patient states the symptoms have been persistent since prior to her stroke. Patient denies any recent fall, striking of her head, or other injury. Patient also denies frontal headache, photophobia, vision changes, nausea, vomiting, or new sensation or motor changes to her extremities. Patient has tried multiple medications at her primary care physician's office including Toradol, as well as rmeo-hnh-sfalyma medications like ibuprofen and Tylenol in addition to home with prescription medications of Flexeril without relief. No other improving or worsening symptoms or interventions noted.Patient is on anticoagulation of Plavix. 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 - Present Medications Home Medications: Ambulatory Orders Medication Instructions Recorded Confirmed Cyclobenzaprine [Flexeril] 10 mg PO TID PRN #20 tablet 04/22/17 09/29/17 Aspirin Chewable [[facility] Por[place] 81 mg PO ONCE 02/08/19 02/08/19 Aspirin] Clopidogrel [Plavix] 75 mg PO ONCE 02/08/19 02/08/19 - Allergies Allergies/Adverse Reactions: Allergies Allergy/AdvReac Type Severity Reaction Status Date / Time naproxen [From Naprosyn] Allergy hyperventil Verified 02/08/19 14:27 ates - Social History Does the pt smoke?: No Smoking Status: Never smoker Does the pt drink ETOH?: Yes Does the pt have substance abuse?: No - Immunizations Immunizations are current?: Yes - POLST Patient has POLST: No PD ED PE NORMAL - General General: Alert and oriented X 3, No acute distress, Well developed/nourished - HEENT HEENT: Atraumatic, EOMI, Moist mucous membranes - Neck Neck: Supple, no meningeal sign, No bony TTP, Other (Moderate muscle spasm bilaterally) - Cardiac Cardiac: RRR, No murmur - Respiratory Respiratory: No respiratory distress - Back Back: No CVA TTP, No spinal TTP - Derm Derm: Normal color, Warm and dry, No rash - Neuro Neuro: Alert and oriented X 3, Other (Unchanged left arm and leg deficits ) - Psych Psych: Normal mood, Normal affect Results - Vitals Vitals: Vital Signs - 24 hr 02/08/19 14:26 Temperature 36.8 C Heart Rate 92 Respiratory 20 Rate Blood Pressure 149/96 H O2 Saturation 100 Oxygen O2 Source Room air PD MEDICAL DECISION MAKING - ED course Complexity details: reviewed old records, considered differential, d/w patient ED course: Most concerning for chronic headache, chronic back pain, muscle spasm other myalgias, as well as sciatica given patient's past medical history and symptomatology. Do not feel patient's complaints today are related to her old stroke or a new stroke. There are no new neurological deficits present. Patient also adamantly denies recent trauma and have low suspicion for traumatic injury or intracranial injury, particularly given anticoagulation.Patient is a mild antispasmodic and muscle relaxant at home. Patient has received other interventions such as Toradol without relief and given her anticoagulation, do not feel this is appropriate to repeat. Patient has also tried other yozm-tcg-qspxbpl's. At this time, feel appropriate to give one-time dose of narcotic and muscle relaxant in the ED, particular this patient has a ride home. Otherwise, do not feel patient requires new interventions such as imaging or other workup at this time. Patient voiced understanding and is comfortable with discharge plan. Departure - Departure Disposition: 01 Home, Self Care Clinical Impression: Muscle spasm Chronic back pain Qualifiers: Back pain location: low back pain Back pain laterality: unspecified Sciatica presence: with sciatica Sciatica laterality: sciatica laterality unspecified Qualified Code(s): M54.40 - Lumbago with sciatica, unspecified side Condition: Good Instructions: ED Chronic Pain Management Follow-Up: Akosua Frye ARNP [Primary Care Provider] - Within 3 Days Comments: Please continue all home medications as prescribed. Also recommend physical therapy, stretching, and heat application to help reduce muscle pain and spasm. Please follow-up with neurology as scheduled and PCP within the next 2-3 days. Return to ED sooner if experience worsening symptoms or other concerns, including any new injuries or falls.
[2019-02-08] MEDS ORDERED: diazePAM 5 MG TABLET PO STA (14:59)
[2019-02-08] MEDS ORDERED: HYDROcod/ACETAM 5/325 MG TABLET PO STA (14:59)
== END 2019-02-08 15:11 | disposition home or self-care (01) ==
LOC: ED 14:23
DX: M62.838 Other muscle spasm (principal); G89.29 Other chronic pain; M54.40 Lumbago with sciatica, unspecified side; I69.898 Other sequelae of other cerebrovascular disease; I10 Essential (primary) hypertension
CPT/HCPCS: 99282; 99283; A9270

== ENCOUNTER 2019-05-20 08:00 | Outpatient (CLI) | payer MEDICARE, MEDICAID ==
[2019-05-20 18:43] LABS: BASOPHILS # (AUTO) 0.1 10^3/uL (0.0-0.1); BASOPHILS % (AUTO) 1.8 %; EOSINOPHILS # (AUTO) 0.7 10^3/uL (0.0-0.7); EOSINOPHILS % (AUTO) 12.9 %; HGB - HEMOGLOBIN 14.6 g/dL (12.0-16.0); LYMPHOCYTES # (AUTO) 1.7 10^3/uL (1.5-3.5); LYMPHOCYTES % (AUTO) 33.9 %; MEAN CORPUSCULAR HEMOGLOBIN 27.6 pg (27.0-31.0); MEAN CORPUSCULAR HGB CONC 30.5 g/dL (32.0-36.0); MEAN CORPUSCULAR VOLUME 90.5 fL (81.0-99.0); MEAN PLATELET VOLUME 10.4 fL (7.9-10.8); MONOCYTES # (AUTO) 0.4 10^3/uL (0.0-1.0); MONOCYTES % (AUTO) 7.2 %; NEUTROPHILS # (AUTO) 2.2 10^3/uL (1.5-6.6); PLT - PLATELET COUNT 233 10^3/uL (130-450); RED BLOOD COUNT 5.29 10^6/uL (4.20-5.40); RED CELL DISTRIBUTION WIDTH 14.9 % (12.0-15.0)
[2019-05-20 18:45] LABS: ALBUMIN 4.2 g/dL (3.2-5.5); ALBUMIN/GLOBULIN RATIO 1.3 (1.0-2.2); ALKALINE PHOSPHATASE 63 IU/L (42-121); ALT ALANINE AMINOTRANSFERASE 15 IU/L (10-60); AST ASPARTATE AMINOTRANSFERASE 21 IU/L (10-42); BILIRUBIN,TOTAL 0.6 mg/dL (0.2-1.0); BUN - BLOOD UREA NITROGEN 15 mg/dL (6-20); CALCIUM 9.8 mg/dL (8.5-10.3); CARBON DIOXIDE - CO2 26 mmol/L (21-32); CHLORIDE 105 mmol/L (101-111); CHOL/HDL RATIO 3.5 (<4.4); CHOLESTEROL 166 mg/dL; CREATININE 0.6 mg/dL (0.4-1.0); GFR - MDRD 100 (>89); GLUCOSE 104 mg/dL (70-100); HDL CHOLESTEROL 47 mg/dL; LDL CHOLESTEROL,CALCULATED 96 mg/dL; SODIUM 143 mmol/L (135-145); TOTAL PROTEIN 7.5 g/dL (6.7-8.2); VLDL CHOLESTEROL 23 mg/dL
== END 2019-05-20 08:01 | disposition home or self-care (01) ==
LOC: LAB.N 08:00
PROVIDERS: ATTEND Family Medicine
DX: Z51.81 Encounter for therapeutic drug level monitoring (principal); I63.9 Cerebral infarction, unspecified; M54.5 Low back pain; Z79.899 Other long term (current) drug therapy
CPT/HCPCS: 36415; 80053; 80061; 83721; 85025

== ENCOUNTER 2019-08-14 13:42 | Outpatient (CLI) | payer MEDICARE, MEDICAID ==
--- NOTE | 2019-08-15 16:34 | XRAY Report ---
Reason: BACK PAIN Procedure Date: 08/14/2019 Accession Number: [id number] / [id number] Procedure: XRN - Thoracic Spine 3 View CPT Code: FULL RESULT: EXAM: THORACIC SPINE RADIOGRAPHY EXAM DATE: 08/14/2019 02:19 PM HISTORY: BACK PAIN. TECHNIQUE: AP, lateral and swimmers, 3 view exam COMPARISON: LUMBAR SPINE 2 VIEW 01/02/2019 11:09 AM FINDINGS: There is a mild broad levo convexity. No fracture or subluxation identified. Minimal mid thoracic degenerative disk disease noted with some disk space narrowing and minimal osteophyte formation. No significant focal bone lesion. IMPRESSION: Mild convex left curvature. Minimal degenerative disk disease. RADIA
--- NOTE | 2019-08-15 18:47 | XRAY Report ---
Reason: back pain,low Procedure Date: 08/14/2019 Accession Number: [id number] / [id number] Procedure: XRN - Lumbar Spine 2 View CPT Code: FULL RESULT: EXAM: LUMBOSACRAL SPINE RADIOGRAPHY EXAM DATE: 08/14/2019 02:19 PM HISTORY: back pain, low TECHNIQUE: AP, lateral and lateral lumbosacral 3 view exam COMPARISON: None FINDINGS: Mild spinal asymmetry with slight dextroconvexity from L2-L5. There is multilevel degenerative disk disease with disk space narrowing seen at each level but most prominent at L5-S1 where there is also endplate sclerosis. Slight retrolisthesis noted at L1-L2, L2-L3 and L3-L4. No compression fractures. Probable L4-L5 and L5-S1 mild facet osteoarthritis. Other: None. IMPRESSION: Mild spinal asymmetry. Multilevel spondylosis as described. No apparent compression fracture. RADIA
== END 2019-08-14 13:43 | disposition home or self-care (01) ==
LOC: DI.N 13:42
PROVIDERS: ATTEND Nurse Practitioner Gerontology
DX: M51.34 Other intervertebral disc degeneration, thoracic region (principal); M51.37 Other intervertebral disc degeneration, lumbosacral region; M51.36 Other intervertebral disc degeneration, lumbar region; M43.16 Spondylolisthesis, lumbar region
CPT/HCPCS: 72072; 72100

== ENCOUNTER 2020-01-07 13:39 | Outpatient (CLI) | payer MEDICARE, MEDICAID ==
--- NOTE | 2020-01-08 05:59 | MRI Report ---
Reason: SPONDYLOYSIS, BACK PAIN LOW Procedure Date: 01/07/2020 Accession Number: [id number] / [id number] Procedure: MRI - Lumbar Spine W/O CPT Code: Final Report FULL RESULT: EXAM: MRI LUMBAR SPINE WITHOUT CONTRAST EXAM DATE: 01/07/2020 03:27 PM CLINICAL HISTORY: Low back pain radiating to the bilateral legs with numbness for years. COMPARISON: LUMBAR SPINE 2 VIEW 08/14/2019 2:20 PM, ABDOMEN/PELVIS W/ 12/26/2016 1:46 PM, L SPINE 09/09/2010 1:44 PM. TECHNIQUE: Multiplanar, multisequence T1-weighted and fluid-sensitive sequences of the lumbar spine from T10 to S1 without contrast. Other: None. FINDINGS: Spinal Canal: The conus terminates at L1. The conus medullaris is unremarkable. Alignment: Mild retrolisthesis at T12-L1 and L1-L2 has developed now measuring 1-2 mm. Mild retrolisthesis at L2-L3 and L3-L4 measuring 3-4 mm appears stable. Retrolisthesis at L5-S1 appears slightly worsened now measuring 3-4 mm, previously measuring 1-2 mm. Bone Marrow: Five pjt-imc-jfhqruj lumbar vertebral bodies are confirmed on the CT. There is suggestion of new mild type I Modic endplate changes at T12-L1, L1-L2, L2-L3, and L5-S1. Disk Levels/Facets: T10-T11: On sagittal images, there is left foraminal stenosis due to facet arthropathy. Mild spinal canal stenosis is present due to a disk bulge but there is no mass-effect on the spinal cord. The right foramen is patent. T11-T12: Unremarkable on sagittal images. T12-L1: A mild disk bulge is present without spinal canal or foraminal stenosis. The disk bulge appears new compared to the prior MRI. L1-L2: Retrolisthesis causes mild bilateral foraminal narrowing and mild spinal canal stenosis. These findings appear progressed compared to the prior MRI. L2-L3: A disk bulge with facet arthropathy and ligamentum flavum infolding result in mild spinal canal stenosis. Trace fluid is present in the facet joints. There is mild bilateral foraminal narrowing, slightly worse on the right. These findings have mildly progressed. L3-L4: A posterior disk osteophyte complex with facet arthropathy and ligamentum flavum infolding result in mild spinal canal stenosis. There is moderate left and mild right foraminal narrowing. Mild fluid is present in the facet joints, greater on the right. These findings appear mildly progressed. L4-L5: A posterior disk osteophyte complex with facet arthropathy and ligamentum flavum infolding result in mild spinal canal stenosis. There is moderate bilateral foraminal narrowing. These findings appear mildly progressed. L5-S1: A posterior disk osteophyte complex with facet arthropathy result in mild spinal canal stenosis. There is mild bilateral foraminal narrowing. These findings appear similar to the prior MRI. Musculature: There is mild diffuse fatty atrophy of the posterior paraspinal muscles without intramuscular edema. Other: The partially visualized retroperitoneum is unremarkable. IMPRESSION: 1. Normal conus medullaris and cauda equina. 2. Compared to the lumbar spine MRI from 09/09/2010, there appear to be new mild type I Modic endplate changes at multiple levels. 3. Moderate multilevel degenerative changes are present which appear progressed compared to the prior MRI but there is no high-grade spinal canal stenosis at any lumbar level. 4. There is moderate left foraminal narrowing at L3-L4 and bilaterally at L4-L5. Comment: The following findings are so common in adults without low back pain that while we report their presence, they must be interpreted with caution and in the context of the clinical situation. (Reference Harrietk et al, Spine 2001) Prevalence of findings in patients without low back pain: Disk degeneration (any evidence): 92% Disk desiccation/T2 signal loss: 83% Disk height loss: 56% Disk bulge: 64% Disk protrusion: 32% Annular tear/high intensity zone: 38% RADIA
== END 2020-01-07 13:40 | disposition home or self-care (01) ==
LOC: DI 13:39
PROVIDERS: ATTEND Physician Assistant Medical
DX: M47.816 Spondylosis without myelopathy or radiculopathy, lumbar region (principal); M47.817 Spondylosis without myelopathy or radiculopathy, lumbosacral region; M48.061 Spinal stenosis, lumbar region without neurogenic claudication; M48.07 Spinal stenosis, lumbosacral region
CPT/HCPCS: 72148

== ENCOUNTER → 2020-10-04 | Outpatient (CLI) | payer MEDICARE, MEDICAID ==
[2020-10-04 12:52] LABS: BASOPHILS # (AUTO) 0.1 10^3/uL (0.0-0.1); BASOPHILS % (AUTO) 1.2 %; EOSINOPHILS # (AUTO) 0.4 10^3/uL (0.0-0.7); EOSINOPHILS % (AUTO) 5.5 %; HGB - HEMOGLOBIN 14.5 g/dL (12.0-16.0); LYMPHOCYTES # (AUTO) 2.2 10^3/uL (1.5-3.5); LYMPHOCYTES % (AUTO) 32.1 %; MEAN CORPUSCULAR HEMOGLOBIN 28.8 pg (27.0-31.0); MEAN CORPUSCULAR VOLUME 90.1 fL (81.0-99.0); MEAN PLATELET VOLUME 10.2 fL (7.9-10.8); MONOCYTES # (AUTO) 0.5 10^3/uL (0.0-1.0); MONOCYTES % (AUTO) 8.1 %; NEUTROPHILS # (AUTO) 3.5 10^3/uL (1.5-6.6); NEUTROPHILS % (AUTO) 52.8 %; PLT - PLATELET COUNT 274 10^3/uL (130-450); RED BLOOD COUNT 5.03 10^6/uL (4.20-5.40); RED CELL DISTRIBUTION WIDTH 14.6 % (12.0-15.0); WHITE BLOOD COUNT 6.7 x10^3/uL (4.8-10.8)
[2020-10-04 13:11] LABS: ALBUMIN 4.1 g/dL (3.2-5.5); ALBUMIN/GLOBULIN RATIO 1.3 (1.0-2.2); ALKALINE PHOSPHATASE 77 IU/L (42-121); ALT ALANINE AMINOTRANSFERASE 14 IU/L (10-60); AST ASPARTATE AMINOTRANSFERASE 22 IU/L (10-42); BILIRUBIN,TOTAL 0.6 mg/dL (0.2-1.0); BUN - BLOOD UREA NITROGEN 18 mg/dL (6-20); CALCIUM 9.1 mg/dL (8.5-10.3); CARBON DIOXIDE - CO2 25 mmol/L (21-32); CHLORIDE 100 mmol/L (101-111); CHOL/HDL RATIO 3.2 (<4.4); CHOLESTEROL 155 mg/dL; CREATININE 0.6 mg/dL (0.4-1.0); GLUCOSE 105 mg/dL (70-100); HDL CHOLESTEROL 48 mg/dL; LDL CHOLESTEROL,CALCULATED 79 mg/dL; LDL/HDL RATIO 1.6 (<4.4); SODIUM 139 mmol/L (135-145); TOTAL PROTEIN 7.2 g/dL (6.7-8.2); VLDL CHOLESTEROL 28 mg/dL
[2020-10-05 12:42] LABS: HEPATITIS C ANTIBODY REACTIVE (NON-REACTIVE)
[2020-10-07 13:38] LABS: HCV RNA QNT <1.18 NOT DETECTED Log IU/mL (NOT DETECTED); HCV RNA QUANT RT PCR <15 NOT DETECTED IU/mL (NOT DETECTED)
== END ==
LOC: LAB.WCP 10:18
PROVIDERS: ATTEND Physician Assistant Medical
DX: E78.00 Pure hypercholesterolemia, unspecified (principal); R05 Cough; Z11.59 Encounter for screening for other viral diseases
CPT/HCPCS: 36415; 80053; 80061; 83721; 85025; 86803

== ENCOUNTER 2020-11-01 14:57 | Emergency (ER) | payer MEDICARE, MEDICAID ==
[2020-11-01 15:02] VITALS: BP 121/109
[2020-11-01] MEDS ORDERED: HYDROmorphone 1 MG/ML CARPUJECT IM STA (15:13)
[2020-11-01] MEDS ORDERED: ONDANSETRON ODT 4 MG TABLET TL STA (15:13)
[2020-11-01] MEDS ORDERED: DEXAMETHASONE 10 MG/ML VIAL IM STA (15:13)
--- NOTE | 2020-11-01 15:15 | ED Physician Documentation ---
PD HPI BACK PAIN - Stated complaint Stated Complaint: BACK PX - Chief complaint Chief Complaint: Back Pain - History obtained from History obtained from: Patient - Additional information Additional information: 69-year-old woman with chronic low back pain, she has pain every day but today is worse. Its in the central to left low back. Radiates a bit into the buttocks. No weakness, numbness, tingling, saddle anesthesia, or fevers. She had an MRI earlier this year which was reviewed. She does not see a back specialist. On normal days when her pain is at her regular level she takes tramadol. That has been unhelpful today. 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 - Present Medications Home Medications: Ambulatory Orders Medication Instructions Recorded Confirmed Cyclobenzaprine [Flexeril] 10 mg PO TID PRN #20 tablet 04/22/17 11/01/20 Aspirin Chewable [St Porfirio 81 mg PO ONCE 02/08/19 11/01/20 Aspirin] Clopidogrel [Plavix] 75 mg PO ONCE 02/08/19 11/01/20 Atorvastatin [Lipitor] 1 tab PO DAILY 11/01/20 11/01/20 HYDROcod/ACETAM 5/325 [[place] 5/325] 1 - 2 tab PO Q6H PRN #15 tablet 11/01/20 traMADol [Ultram] 1 tab PO PRN PRN 11/01/20 11/01/20 - Allergies Allergies/Adverse Reactions: Allergies Allergy/AdvReac Type Severity Reaction Status Date / Time naproxen [From Naprosyn] Allergy hyperventil Verified 11/01/20 15:02 ates - Social History Does the pt smoke?: No Smoking Status: Never smoker Does the pt drink ETOH?: Yes Does the pt have substance abuse?: No - Immunizations Immunizations are current?: Yes - POLST Patient has POLST: No PD ED PE NORMAL - Vitals Vital signs reviewed: Yes - General General: Alert and oriented X 3, No acute distress - Back Back: Other (Muscular tenderness of the left low back above the pelvic brim without midline spinal tenderness.) - Extremities Extremities: Other (The patient has equal and normal Achilles and patellar reflexes bilaterally. Normal sensation in all areas of the legs. Patient denies saddle anesthesia. Normal strength in flexion-extension at the ankles, knees, and flexion of the hips.) - Neuro Neuro: Alert and oriented X 3, Normal speech Results - Vitals Vitals: Vital Signs - 24 hr 11/01/20 14:59 Temperature 36.7 C Heart Rate 109 H Respiratory 20 Rate Blood Pressure 121/109 H O2 Saturation 100 Oxygen O2 Source Room air PD MEDICAL DECISION MAKING - ED course ED course: This patient has seemingly uncomplicated musculoskeletal back pain. The patient has no "red flags." Specifically denies IV drug use, fevers, incontinence, saddle anesthesia. Spinal epidural abscess was considered, given that the patient has no fever, is not diabetic, has no spinal tenderness, does not use IV drugs, and has no bilateral neurologic symptoms, the diagnosis of spinal epidural abscess is considered exceedingly unlikely. Departure - Departure Disposition: 01 Home, Self Care Clinical Impression: Acute exacerbation of chronic low back pain Condition: Good Record reviewed to determine appropriate education?: Yes Instructions: ED Spasm Back No Trauma Prescriptions: HYDROcod/ACETAM 5/325 [[place] 5/325] 1 - 2 tab PO Q6H PRN #15 tablet PRN Reason: Pain Comments: Do not take your tramadol while taking hydrocodone. The hydrocodone is stronger. You can start taking the tramadol again when pain is back to or close to your baseline pain. Return if worsening.
== END 2020-11-01 15:28 | disposition home or self-care (01) ==
LOC: ED 14:57
DX: M54.5 Low back pain (principal); G89.29 Other chronic pain; I10 Essential (primary) hypertension; Z86.73 Personal history of transient ischemic attack (TIA), and cerebral infarction without residual deficits; Z79.02 Long term (current) use of antithrombotics/antiplatelets; Z79.82 Long term (current) use of aspirin
CPT/HCPCS: 96372; 99283; J1170; Q0162

== ENCOUNTER 2020-11-06 14:47 | Emergency (ER) | payer MEDICARE, MEDICAID ==
--- NOTE | 2020-11-06 14:58 | ED Physician Documentation ---
PD HPI HEAD INJURY - Stated complaint Stated Complaint: GLF - Chief complaint Chief Complaint: Trauma Hd/Nk - History obtained from History obtained from: Patient - History of Present Illness Mechanism of head injury: Fell (she states she stumbled on loos rug and fell forward, striking forehead. With significant headache since. No confusion, nor altered mentation. Some nausea. ALso with some neck pain.) Where head injury occurred: Home Timing - onset: Today (this morning) Location of injury: Front Quality of pain: Pain, Aching Associated symptoms: Nausea / vomiting, Neck pain, Paresthesias. No: LOC, AMS Symptoms worsen with: Palpation Contributing factors: Anticoagulated (on Plavix). No: Intoxicated Similar symptoms before: Has not had sx before Review of Systems Constitutional: denies: Fever, Chills Nose: denies: Rhinorrhea / runny nose, Congestion Throat: denies: Sore throat Cardiac: denies: Chest pain / pressure Respiratory: denies: Cough GI: reports: Nausea. denies: Abdominal Pain, Vomiting, Diarrhea Skin: denies: Abrasion (s), Laceration (s) Musculoskeletal: reports: Neck pain (since the fall), Back pain (chronically, no change since the fall.) Neurologic: denies: Focal weakness, Numbness, Near syncope PD PAST MEDICAL HISTORY - Past Medical History Cardiovascular: Hypertension Neuro: CVA, Other (no migraines) Musculoskeletal: Chronic back pain - Past Surgical History Past Surgical History: Yes General: Cholecystectomy Ortho: Spine surgery /[employer] HEAD: Hysterectomy - Present Medications Home Medications: Ambulatory Orders Medication Instructions Recorded Confirmed Cyclobenzaprine [Flexeril] 10 mg PO TID PRN #20 tablet 04/22/17 11/01/20 Aspirin Chewable [St Porfirio 81 mg PO ONCE 02/08/19 11/01/20 Aspirin] Clopidogrel [Plavix] 75 mg PO ONCE 02/08/19 11/01/20 Atorvastatin [Lipitor] 1 tab PO DAILY 11/01/20 11/01/20 HYDROcod/ACETAM 5/325 [[place] 5/325] 1 - 2 tab PO Q6H PRN #15 tablet 11/01/20 traMADol [Ultram] 1 tab PO PRN PRN 11/01/20 11/01/20 - Allergies Allergies/Adverse Reactions: Allergies Allergy/AdvReac Type Severity Reaction Status Date / Time lisinopril Allergy Unknown Verified 11/06/20 14:51 naproxen [From Naprosyn] Allergy hyperventil Verified 11/06/20 14:51 ates - Social History Does the pt smoke?: No Smoking Status: Never smoker Does the pt drink ETOH?: Yes Does the pt have substance abuse?: No - Immunizations Immunizations are current?: Yes - POLST Patient has POLST: No PD ED PE NORMAL - Vitals Vital signs reviewed: Yes - General General: Alert and oriented X 3, Well developed/nourished, Other (tender with small abrasion and swelling on forehead center. ) - HEENT HEENT: PERRL, EOMI - Neck Neck: Supple, no meningeal sign, No adenopathy, Other (some tender in mid to lower neck without deformity) - Respiratory Respiratory: Clear bilaterally, Other (no chestwall tenderness) - Abdomen Abdomen: Soft, Non tender - Back Back: No CVA TTP, No spinal TTP - Derm Derm: Normal color, Warm and dry - Extremities Extremities: Normal ROM s pain - Neuro Neuro: Alert and oriented X 3, turf grower 2-12 intact, No motor deficit, No sensory deficit, Normal speech Eye Opening: Spontaneous Motor: Obeys Commands Verbal: Oriented GCS Score: 15 - Psych Psych: Normal mood, Normal affect Results - Vitals Vitals: Vital Signs - 24 hr 11/06/20 11/06/20 11/06/20 14:51 15:39 16:45 Temperature 36.9 C Heart Rate 110 H 102 H 109 H Respiratory 19 20 16 Rate Blood Pressure 99/66 150/93 H 124/77 O2 Saturation 100 100 100 Oxygen O2 Source Room air - Rads (name of study) head CT Radiology: Prelim report reviewed (no ICH nor acute process), See rad report cervical CT Radiology: Prelim report reviewed (no fractures), See rad report PD MEDICAL DECISION MAKING - ED course Complexity details: reviewed results, considered differential, d/w patient Departure - Departure Disposition: 01 Home, Self Care Clinical Impression: Accidental fall Qualifiers: Encounter type: initial encounter Qualified Code(s): W19.XXXA - Unspecified fall, initial encounter Facial contusion Qualifiers: Encounter type: initial encounter Qualified Code(s): S00.83XA - Contusion of other part of head, initial encounter Headache Qualifiers: Headache type: unspecified Headache chronicity pattern: acute headache Intractability: not intractable Qualified Code(s): R51.9 - Headache, unspecified Neck muscle strain Qualifiers: Encounter type: initial encounter Qualified Code(s): S16.1XXA - Strain of muscle, fascia and tendon at neck level, initial encounter Condition: Stable Record reviewed to determine appropriate education?: Yes Instructions: ED Contusion Scalp Follow-Up: Sil Zapata PA-C [Primary Care Provider] - Comments: Your head and neck CT scans did not show any signs of bleeding fractures or acute abnormality. Expect to have some mild headache and slightly off balance or lightheaded episodically for couple of days from the injury. This would be very mild concussive symptoms. Follow-up with your primary care if symptoms last more than several days or so. Tylenol or ibuprofen if needed for pains. Discharge Date/Time: 11/06/20 17:09
[2020-11-06] MEDS ORDERED: HYDROcod/ACETAM 5/325 MG TABLET PO STA (15:10)
--- NOTE | 2020-11-06 15:48 | CT Report ---
PROCEDURE: HEAD WO INDICATIONS: fall and struck forehead; BOWEN and neck pain TECHNIQUE: Noncontrast 4.5 mm thick angled axial sections acquired from the foramen magnum to the vertex. For r adiation dose reduction, the following was used: automated exposure control, adjustment of mA and/or kV according to patient size. COMPARISON: None. FINDINGS: Image quality: Excellent. CSF spaces: Basal cisterns are patent. No extra-axial fluid collections. Ventricles are normal in size and shape. Brain: No midline shift. Chronic appearing encephalomalacia involving the right basal ganglia region . No intracranial masses or hemorrhage. Jiménez-white matter interface is normal. Skull and face: Calvarium and visualized facial bones are intact, without suspicious lesions. Sinuses: Visualized sinuses and mastoids are clear. IMPRESSION: No acute intracranial process. Reviewed by: Gene Chaudhari MD on 11/06/2020 3:47 PM [facility] Approved by: Gene Chaudhari MD on 11/06/2020 3:47 PM [facility] Station ID: [id number]
--- NOTE | 2020-11-06 15:56 | CT Report ---
PROCEDURE: CERVICAL SPINE WO INDICATIONS: fall and struck forehead; BOWEN and neck pain TECHNIQUE: Noncontrast 3 mm thick sections acquired from the skull base to the T4 level. Sagittal and coronal r eformats were then constructed. For radiation dose reduction, the following was used: automated exp osure control, adjustment of mA and/or kV according to patient size. COMPARISON: None. FINDINGS: Image quality: Excellent. Bones: No fractures or dislocations. Postsurgical changes related to interbody cage graft at C3-C4 w ith anterior retaining pins. Diffuse osteopenia. Scattered multilevel endplate spurring and diffuse f acet arthropathy. Severe T1-T2 disc degeneration with vacuum phenomenon Visualized superior ribs are intact. Soft tissues: Prevertebral soft tissues are normal in thickness. No paravertebral hematomas. No ap ical pneumothoraces. Scattered carotid atherosclerotic calcified plaque. IMPRESSION: No fracture. Spondylitic changes and facet arthropathy Reviewed by: Gene Pyle MD on 11/06/2020 3:55 PM PST Approved by: Gene Pyle MD on 11/06/2020 3:55 PM PST Station ID: [id number]
[2020-11-06 16:45] VITALS: BP 124/77
[2020-11-06] MEDS ORDERED: oxyCODONE 5 MG TABLET PO STA (16:57)
== END 2020-11-06 17:09 | disposition home or self-care (01) ==
LOC: ED 14:47
DX: S00.83XA Contusion of other part of head, initial encounter (principal); S00.81XA Abrasion of other part of head, initial encounter; S16.1XXA Strain of muscle, fascia and tendon at neck level, initial encounter; W01.0XXA Fall on same level from slipping, tripping and stumbling without subsequent striking against object, initial encounter; Y92.009 Unspecified place in unspecified non-institutional (private) residence as the place of occurrence of the external cause; R51.9 Headache, unspecified; M47.812 Spondylosis without myelopathy or radiculopathy, cervical region; M51.34 Other intervertebral disc degeneration, thoracic region; I10 Essential (primary) hypertension; Z86.73 Personal history of transient ischemic attack (TIA), and cerebral infarction without residual deficits; Z79.02 Long term (current) use of antithrombotics/antiplatelets; Z79.82 Long term (current) use of aspirin
CPT/HCPCS: 70450; 72125; 99284; A9270

== ENCOUNTER 2020-11-21 15:17 | Emergency (ER) | payer MEDICARE, MEDICAID ==
[2020-11-21] MEDS ORDERED: SODIUM CHLORIDE 0.9% 1,000 ML IV STA (15:46)
[2020-11-21 15:47] LABS: BASOPHILS # (AUTO) 0.1 10^3/uL (0.0-0.1); BASOPHILS % (AUTO) 1.2 %; EOSINOPHILS # (AUTO) 0.2 10^3/uL (0.0-0.7); HGB - HEMOGLOBIN 13.5 g/dL (12.0-16.0); LYMPHOCYTES # (AUTO) 1.9 10^3/uL (1.5-3.5); LYMPHOCYTES % (AUTO) 38.5 %; MEAN CORPUSCULAR HEMOGLOBIN 28.8 pg (27.0-31.0); MEAN CORPUSCULAR HGB CONC 32.5 g/dL (32.0-36.0); MEAN CORPUSCULAR VOLUME 88.5 fL (81.0-99.0); MEAN PLATELET VOLUME 9.5 fL (7.9-10.8); MONOCYTES # (AUTO) 0.4 10^3/uL (0.0-1.0); MONOCYTES % (AUTO) 7.7 %; NEUTROPHILS # (AUTO) 2.5 10^3/uL (1.5-6.6); NEUTROPHILS % (AUTO) 49.4 %; PLT - PLATELET COUNT 243 10^3/uL (130-450); RED BLOOD COUNT 4.69 10^6/uL (4.20-5.40); RED CELL DISTRIBUTION WIDTH 14.3 % (12.0-15.0)
--- NOTE | 2020-11-21 15:53 | ED Physician Documentation ---
History of Present Illness - Stated complaint Stated Complaint: DIZZINESS - Chief complaint Chief Complaint: Neuro - Additonal information Additional information: 69-year-old female presents to the emergency department for 2 episodes of near syncope today. She reports that she is walking she begins to feel suddenly lightheaded and has to go to the ground otherwise she would fall. she denies tunnel vision, diplopia. She denies that she is having chest pain or shortness of breath at this time or when she was having near syncope. She denies striking her head or losing consciousness. She is worried that she could be having a stroke as she had a thrombolytic stroke in 2019 for which she was hospitalized for nearly 1 week. Over the course of today she denies slurred speech, focal weakness, facial droop. she does report a mild headache pmh: htn, hyperlipidemia, cva meds: lisinopril, plavix, atorvastatin soc: + tobacco Review of Systems Constitutional: denies: Fever, Chills Eyes: denies: Loss of vision, Decreased vision Ears: denies: Loss of hearing Nose: denies: Rhinorrhea / runny nose, Foreign Body Cardiac: denies: Chest pain / pressure, Palpitations, Pedal edema, Calf pain Respiratory: denies: Dyspnea, Cough GI: denies: Abdominal Pain, Nausea, Vomiting, Constipation : denies: Dysuria, Frequency, Hesitancy Skin: denies: Rash, Lesions Musculoskeletal: reports: Back pain (chronic) Neurologic: reports: Near syncope, Headache (new). 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 - Present Medications Home Medications: Ambulatory Orders Medication Instructions Recorded Confirmed Cyclobenzaprine [Flexeril] 10 mg PO TID PRN #20 tablet 04/22/17 11/21/20 Aspirin Chewable [St Porfirio 81 mg PO ONCE 02/08/19 11/21/20 Aspirin] Clopidogrel [Plavix] 75 mg PO ONCE 02/08/19 11/21/20 Atorvastatin [Lipitor] 1 tab PO DAILY 12/07/20 12/27/20 HYDROcod/ACETAM 5/325 [[place] 5/325] 1 - 2 tab PO Q6H PRN #15 tablet 11/01/20 11/21/20 traMADol [Ultram] 1 tab PO PRN PRN 11/01/20 11/21/20 - Allergies Allergies/Adverse Reactions: Allergies Allergy/AdvReac Type Severity Reaction Status Date / Time lisinopril Allergy Unknown Verified 11/21/20 15:36 naproxen [From Naprosyn] Allergy hyperventil Verified 11/21/20 15:36 ates - Social History Does the pt smoke?: No Smoking Status: Never smoker Does the pt drink ETOH?: Yes Does the pt have substance abuse?: No - Immunizations Immunizations are current?: Yes - POLST Patient has POLST: No PD ED PE EXPANDED - General General: Alert, No acute distress, Well developed/nourished - HEENT HEENT: PERRL, EOMI, Moist mucous membranes, Pharynx normal - Eyes Eyes: PERRL, EOMI - Neck Neck: Supple w/out meningeal sx. No: Adenopathy - Cardiac Cardiac: Regular Rate, Regular Rhythm, Radial strong equal, Pedal strong equal, Cap refill < 2 sec. No: Murmur Present - Respiratory Respiratory: Clear to ausultation anel. No: Distress, Labored - Abdomen Abdomen: Normal Bowel sounds. No: Tender to palpation - Back Back: Normal exam. No: Vertebral tenderness, Soft tissue tenderness - Neuro Neuro: Alert and Oriented X 3, CNII-XII intact, PERRL, Cerebellar nl, Normal gait, Normal finger nose, Normal speech, Other (NIH 0). No: Nystagmus - GCS Eye Opening: Spontaneous Motor: Obeys Commands Verbal: Oriented Total: 15 Results - Vitals Vitals: Vital Signs - 24 hr 11/21/20 11/21/20 11/21/20 15:20 15:52 16:48 Temperature 36.7 C Heart Rate 101 H 99 Heart Rate [ 100 Sitting] Heart Rate [ 105 H Standing] Heart Rate [ 96 Supine] Respiratory 20 26 H Rate Blood Pressure 163/96 H Blood Pressure 157/97 H [Sitting] Blood Pressure 141/88 H [Standing] Blood Pressure 155/75 H [Supine] O2 Saturation 95 97 11/21/20 17:20 Temperature Heart Rate 95 Heart Rate [ Sitting] Heart Rate [ Standing] Heart Rate [ Supine] Respiratory 20 Rate Blood Pressure 154/96 H Blood Pressure [Sitting] Blood Pressure [Standing] Blood Pressure [Supine] O2 Saturation 100 Oxygen O2 Source Room air - EKG (time done) 1521 Rate: Rate (enter#) (96) Rhythm: NSR [place]: Normal Intervals: Normal PA QRS: Poor R wave progression Ischemia: Non specific changes (anterior leads) Compare to prior EKG: Changed from prior EKG Computer interpretation: Agree with computer - Labs Labs: Laboratory Tests 11/21/20 11/21/20 11/21/20 15:40 15:40 15:40 WBC 5.0 RBC 4.69 Hgb 13.5 Hct 41.5 MCV 88.5 MCH 28.8 MCHC 32.5 RDW 14.3 Plt Count 243 MPV 9.5 Neut # (Auto) 2.5 Lymph # (Auto) 1.9 [place] # (Auto) 0.4 Eos # (Auto) 0.2 Baso # (Auto) 0.1 Absolute Nucleated RBC 0.00 Nucleated RBC % 0.0 Sodium 141 Potassium 3.2 L Chloride 105 Carbon Dioxide 22 Anion Gap 14.0 H BUN 11 Creatinine 0.6 Estimated GFR (MDRD) 100 Glucose 122 H Calcium 9.3 Total Bilirubin 0.5 AST 22 ALT 17 Alkaline Phosphatase 68 Troponin I High Sens 2.9 B-Natriuretic Peptide Total Protein 7.1 Albumin 4.2 Globulin 2.9 Albumin/Globulin Ratio 1.4 Lipase 25 11/21/20 15:40 WBC RBC Hgb Hct MCV MCH MCHC RDW Plt Count MPV Neut # (Auto) Lymph # (Auto) [place] # (Auto) Eos # (Auto) Baso # (Auto) Absolute Nucleated RBC Nucleated RBC % Sodium Potassium Chloride Carbon Dioxide Anion Gap BUN Creatinine Estimated GFR (MDRD) Glucose Calcium Total Bilirubin AST ALT Alkaline Phosphatase Troponin I High Sens B-Natriuretic Peptide 12 Total Protein Albumin Globulin Albumin/Globulin Ratio Lipase - Rads (name of study) CXR Radiology: Final report received (No acute cardiopulmonary process) CT angio head Radiology: Final report received CT angio neck Radiology: Final report received (Right common internal carotid artery stent is patent. No stenosis occlusion or aneurysm within the cervical portions of the posterior anterior circulation. Mild stenosis within the cavernous portion of the right ICA as described in the associated CT angio of the head. Mild aortic atherosclerosis.) PD MEDICAL DECISION MAKING - ED course Complexity details: reviewed results, re-evaluated patient, considered differential, d/w patient, d/w family ED course: 69-year-old female presents the emergency department for evaluation of near syncope this afternoon. She reports that she was walking and began to feel lightheaded but not dizzy and therefore she would lower herself to the ground. She did not lose consciousness. She denies chest pain or shortness of breath. She does have a history of previous CVA and does have a stent in her right internal carotid artery. On presentation she appears very well. NIH score of 0. She has no focal neuro deficits or slurred speech. Her vital signs here have been normal for age and history. No tachyarrhythmias or atrial fibrillation. No hypotension. Orthostatic vital signs unrevealing. Her EKG was sinus without any ischemic changes. High-sensitivity troponin negative. Her screening CBC showed no anemia. Normal liver function tests and renal function. Chest x-ray without acute abnormalities. She was given [address] angio of the head and neck did not demonstrate any worrisome findings. She does have a patent right ICA stent. Here in the emergency department she was given time after fluids and reevaluated. She was able to ambulate up and down the gu easily without further complaints of dizziness. I discussed her labs and imaging at length. She agrees to follow-up with her primary care doctor and consider echocardiogram as an outpatient. Emergent return precautions discussed Departure - Departure Disposition: 01 Home, Self Care Clinical Impression: Near syncope Condition: Stable Record reviewed to determine appropriate education?: Yes Instructions: ED Near Syncope Unkn Follow-Up: Sil Zapata PA-C [Primary Care Provider] - Comments: Fozia you were seen today for near fainting episodes. Your labs today were all essentially normal. Your chest x-ray EKG did not show anything worrisome. The CT angiograms of your head and neck did not show any new or worrisome findings. There were no blood clots or concerns with flow in the brain. Your vital signs today were also pretty normal. At this time it is not clear what the cause of your near fainting episodes were. Please use caution when walking at home. It is important to see your primary care doctor about this ER visit. They should consider repeat testing as an outpatient on your heart such as a stress test or echocardiogram. Please return immediately to the ER if you develop chest pain, have any fainting episodes, have slurred speech or weakness in your arms or legs.
[2020-11-21 16:00] LABS: ALBUMIN 4.2 g/dL (3.2-5.5); ALBUMIN/GLOBULIN RATIO 1.4 (1.0-2.2); BILIRUBIN,TOTAL 0.5 mg/dL (0.2-1.0); CALCIUM 9.3 mg/dL (8.5-10.3); CREATININE 0.6 mg/dL (0.4-1.0); TOTAL PROTEIN 7.1 g/dL (6.7-8.2)
--- NOTE | 2020-11-21 16:09 | XRAY Report ---
PROCEDURE: Chest 1 View X-Ray INDICATIONS: Chest Pain TECHNIQUE: One view of the chest was acquired. COMPARISON: Single view the chest dated 12/09/2018. FINDINGS: Surgical changes and devices: None. Lungs and pleura: No pleural effusions or pneumothorax. Lungs are clear. Mediastinum: Mediastinal contours appear normal. Heart size is normal. Bones and chest wall: No suspicious bony lesions. Overlying soft tissues appear unremarkable. IMPRESSION: No acute cardiopulmonary findings. Reviewed by: Annalise Lott MD on 11/21/2020 3:08 PM [facility] Approved by: Annalise Lott MD on 11/21/2020 3:08 PM [facility] Station ID: [id number]
[2020-11-21] MEDS ORDERED: IOVERSOL 320 100 ML VIAL IVP ONE ×2 (16:10→16:27)
--- NOTE | 2020-11-21 16:57 | CT Report ---
PROCEDURE: ANGIO HEAD W/WO INDICATIONS: near syncope; multiple falls hx of cva CONTRAST: IV CONTRAST: Optiray 320 ml: 80 PO CONTRAST: *NO PO CONTRAST TECHNIQUE: Precontrast 4.5 mm thick angled axial sections acquired from the foramen magnum to the vertex. Afte r the administration of intravenous contrast, 1 mm thick sections acquired through the [place] of [place] is. Postcontrast 4.5 mm thick sections then re-acquired from the foramen magnum to the vertex. 3-di mensional brnqsnq-hknuidcut-kbkfynfvwb (MIP) and/or volume rendering reformats were acquired of the c entral intracranial vasculature. For radiation dose reduction, the following was used: automated ex posure control, adjustment of mA and/or kV according to patient size. COMPARISON: Noncontrast head CT dated 11/06/2020. FINDINGS: Image quality: Excellent. Anterior circulation: Intracranial internal carotid arteries are normal in overall size and flow. Fo [place] atheromatous calcifications within the cavernous portion of the right internal carotid artery res ulting in a mild focal stenosis. The flow within the paired anterior cerebral arteries is normal and symmetric. The flow within the middle cerebral arteries is normal and symmetric. The anterior commu nicating artery is not seen. No aneurysms are seen. Posterior circulation: Visualized portions of the vertebral arteries demonstrate normal caliber, and join to form a normal appearing basilar artery. Flow within the posterior cerebral arteries is norm al and symmetric. No aneurysms are seen. CSF spaces: Ventricles are normal in size and shape. Basal cisterns are patent. No extra-axial flu id collections. Brain: No midline shift. No intracranial bleeds or masses. Encephalomalacia is redemonstrated withi n the right basal ganglia, unchanged from the study dated 11/06/2020. Jiménez-white matter interface june ears intact. Skull and face: Calvarium and facial bones appear intact, without suspicious lesions. Sinuses: Visualized sinuses and mastoids are clear. IMPRESSION: 1. Mild stenosis within the cavernous portion of the right internal carotid artery secondary to ather omatous calcification. No other stenosis, occlusion, or aneurysm. 2. No acute intracranial findings. Stable encephalomalacia within the right basal ganglia. Reviewed by: Annalise Lott MD on 11/21/2020 3:56 PM [facility] Approved by: Annalise Lott MD on 11/21/2020 3:56 PM [facility] Station ID: [id number]
--- NOTE | 2020-11-21 17:04 | CT Report ---
PROCEDURE: ANGIO NECK W INDICATIONS: near syncope; multiple falls CONTRAST: IV CONTRAST: Optiray 320 ml: 80 PO CONTRAST: *NO PO CONTRAST TECHNIQUE: After the administration of intravenous contrast, 1.5 mm axial sections acquired from the aortic arch to the [place] of [place]. Coronal 3-D maximum intensity projection (MIP) and/or volume rendering ref ormats were then performed. For radiation dose reduction, the following was used: automated exposur e control, adjustment of mA and/or kV according to patient size. COMPARISON: None. FINDINGS: Image quality: Excellent. Carotid system: The great vessels demonstrate a conventional anatomy as they arise from the aortic a [facility]. Scattered atheromatous calcifications are visualized within the thoracic aortic arch. A moderate grade stenosis is present at the origin of the left subclavian artery. The more peripheral portions of the artery are widely patent. The origins of the common carotid arteries appear patent. There is a right common carotid/inferior internal carotid artery stent present. The stent appears patent. The s uperior portion of the right internal carotid artery is widely patent. The left common carotid artery is patent. Mild stenosis is present within the inferior aspect of the left internal carotid artery. The more superior portions of the left internal carotid artery are widely patent. Posterior circulation: The origins of the vertebral arteries appear patent. The more superior porti ons of the vertebral arteries demonstrate normal course and caliber. They join to form a normal appe aring basilar artery. Soft tissues: Visualized neck soft tissues demonstrate no suspicious abnormalities. The thyroid gla nd is normal in size. Bones: No suspicious bony lesions. Visualized cervical spine appears normally aligned. Anterior f ixation is noted at C3-4. Severe degenerative changes are present throughout the cervical spine. IMPRESSION: 1. Right common/internal carotid artery stent is patent. 2. No stenosis, occlusion, or aneurysm within the cervical portions of the posterior or anterior circ ulation. 3. Mild stenosis within the cavernous portion of the right internal carotid artery as described on th e associated CT angiogram of the head. 4. Mild aortic atherosclerosis The estimate of stenosis included in the report of the imaging study was calculated using the NASCET method Reviewed by: Annalise Lott MD on 11/21/2020 4:02 PM [facility] [[email or web address]] Approved by: Annalise Lott MD on 11/21/2020 4:02 PM [facility] [[email or web address]] Station ID: [id number]
[2020-11-21 17:21] VITALS: BP 154/96
[2020-11-21] MEDS ORDERED: HYDROcod/ACETAM 5/325 MG TABLET PO STA (17:54)
== END 2020-11-21 18:11 | disposition home or self-care (01) ==
LOC: ED 15:17
DX: R55 Syncope and collapse (principal); Z86.73 Personal history of transient ischemic attack (TIA), and cerebral infarction without residual deficits; Z95.828 Presence of other vascular implants and grafts; I10 Essential (primary) hypertension; E78.5 Hyperlipidemia, unspecified; F17.200 Nicotine dependence, unspecified, uncomplicated; Z79.02 Long term (current) use of antithrombotics/antiplatelets; Z79.82 Long term (current) use of aspirin
CPT/HCPCS: 36415; 70496; 70498; 71045; 80053; 83690; 83880; 84484; 85025; 93005; 99284; A9270; Q9967

== ENCOUNTER 2022-12-26 17:06 | Outpatient (CLI) | payer MEDICARE, MEDICAID | END 2022-12-26 17:07 | disposition critical access hospital (66) | LOC: EMS 17:06 | DX: R09.2 Respiratory arrest (principal); T40.2X1A Poisoning by other opioids, accidental (unintentional), initial encounter | CPT/HCPCS: A0425; A0429 ==

== ENCOUNTER 2022-12-26 17:29 | Emergency (ER) | payer MEDICARE, MEDICAID ==
--- NOTE | 2022-12-26 17:50 | ED Physician Documentation ---
PD HPI OVERDOSE - Stated complaint Stated Complaint: OVERDOSE - Chief complaint Chief Complaint: Critical Care - History obtained from History obtained from: Patient, Family - History of Present Illness Subtance(s) ingested: Single, Narcotic Associated symptoms: Resp arrest, Unresponsive Contributing factors: Substance abuse Treatment [employer]: Narcan - Additional information Additional information: This is a 72-year-old female who was brought in via EMS after an accidental overdose. The patient apparently smoked a "bluey" and then became unresponsive according to her . He did some bystander CPR by briefly pressing on her chest and she was given a total of 6 doses of intranasal Narcan by family and was awake w/ GCS of 15 when EMS arrived. Patient states she is not on chronic narcotics and had "never done this before." She denies any concerns at this time, has no chest pain or difficulty breathing, no rib pain, no headache or confusion, no focal weakness or numbness, no abdominal pain nausea vomiting diarrhea or urinary symptoms. She was feeling well prior to this incident. Review of Systems Constitutional: reports: Reviewed and negative Eyes: reports: Reviewed and negative Ears: reports: Reviewed and negative Nose: reports: Reviewed and negative Throat: reports: Reviewed and negative Cardiac: reports: Reviewed and negative Respiratory: reports: Reviewed and negative GI: reports: Reviewed and negative : reports: Reviewed and negative Skin: reports: Reviewed and negative Musculoskeletal: reports: Reviewed and negative Neurologic: reports: Reviewed and negative Psychiatric: reports: Reviewed and negative Endocrine: reports: Reviewed and negative Immunocompromised: reports: Reviewed and negative PD PAST MEDICAL HISTORY - Past Medical History Past Medical History: Yes Cardiovascular: Hypertension, High cholesterol Neuro: CVA, Other Musculoskeletal: Chronic back pain - Past Surgical History Past Surgical History: Yes General: Cholecystectomy 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 - Present Medications Home Medications: Ambulatory Orders Medication Instructions Recorded Confirmed Cyclobenzaprine [Flexeril] 10 mg PO TID PRN #20 tablet 04/22/17 11/21/20 Aspirin Chewable [St Porfirio 81 mg PO ONCE 02/08/19 11/21/20 Aspirin] Clopidogrel [Plavix] 75 mg PO ONCE 02/08/19 11/21/20 Atorvastatin [Lipitor] 1 tab PO DAILY 11/01/20 11/21/20 HYDROcod/ACETAM 5/325 [[place] 5/325] 1 - 2 tab PO Q6H PRN #15 tablet 11/01/20 11/21/20 traMADol [Ultram] 1 tab PO PRN PRN 11/01/20 11/21/20 Naloxone HCl Nasal [Narcan Nasal] 1 kit RUPERT PRN PRN #1 kit 12/26/22 - Allergies Allergies/Adverse Reactions: Allergies Allergy/AdvReac Type Severity Reaction Status Date / Time lisinopril Allergy Unknown Verified 11/21/20 15:36 naproxen [From Naprosyn] Allergy hyperventil Verified 11/21/20 15:36 ates - Social History Does the pt smoke?: No Smoking Status: Never smoker Does the pt drink ETOH?: Yes Does the pt have substance abuse?: Yes Substance Use and Type: Other - Immunizations Immunizations are current?: Yes - POLST Patient has POLST: No PD ED PE NORMAL - Vitals Vital signs reviewed: Yes - General General: Alert and oriented X 3, No acute distress, Other (Appears disheveled, somewhat drowsy but conversant.) - HEENT HEENT: EOMI, Moist mucous membranes, Pharynx benign, Other (Pinpoint pupils, No teeth) - Neck Neck: Supple, no meningeal sign, No JVD - Cardiac Cardiac: RRR, No murmur, No gallop, No rub, Strong equal pulses, Other (No chest wall tenderness) - Respiratory Respiratory: No respiratory distress, Clear bilaterally - Abdomen Abdomen: Normal bowel sounds, Soft, Non tender, Non distended - Back Back: No CVA TTP, No spinal TTP - Derm Derm: Normal color, Warm and dry, No rash - Extremities Extremities: No deformity, No tenderness to palpate, Normal ROM s pain, No edema, No calf tenderness / cord - Neuro Neuro: Alert and oriented X 3, accounting specialist 2-12 intact, No motor deficit, No sensory deficit, Normal speech Eye Opening: Spontaneous Motor: Obeys Commands Verbal: Oriented GCS Score: 15 - Psych Psych: No: Other Results - Vitals Vitals: Vital Signs - 24 hr 12/26/22 17:37 Temperature 36.4 C L Heart Rate 87 Respiratory 22 Rate Blood Pressure 134/68 H O2 Saturation 99 Oxygen O2 Source Room air - EKG (time done) No standard instances Rate: Rate (enter#) (80) Rhythm: NSR [place]: Normal Intervals: Normal [place] QRS: Normal Ischemia: Normal ST segments Computer interpretation: Agree with computer - Labs Labs: Laboratory Tests 12/26/22 12/26/22 12/26/22 18:05 18:05 18:05 WBC 6.7 RBC 4.96 Hgb 13.5 Hct 44.6 MCV 89.9 MCH 27.2 MCHC 30.3 L RDW 14.6 Plt Count 223 MPV 9.6 Neut # (Auto) 4.6 Lymph # (Auto) 1.4 L [place] # (Auto) 0.4 Eos # (Auto) 0.2 Baso # (Auto) 0.1 Absolute Nucleated RBC 0.00 Nucleated RBC % 0.0 Sodium 136 Potassium 3.6 Chloride 102 Carbon Dioxide 21 Anion Gap 13.0 BUN 18 Creatinine 0.5 Estimated GFR (MDRD) 122 Glucose 135 H Calcium 9.2 Total Bilirubin 0.6 AST 26 ALT 22 Alkaline Phosphatase 79 Troponin I High Sens 4.4 Total Protein 6.9 Albumin 3.8 Globulin 3.1 Albumin/Globulin Ratio 1.2 Lipase 25 12/26/22 19:59 WBC RBC Hgb Hct MCV MCH MCHC RDW Plt Count MPV Neut # (Auto) Lymph # (Auto) [place] # (Auto) Eos # (Auto) Baso # (Auto) Absolute Nucleated RBC Nucleated RBC % Sodium Potassium Chloride Carbon Dioxide Anion Gap BUN Creatinine Estimated GFR (MDRD) Glucose Calcium Total Bilirubin AST ALT Alkaline Phosphatase Troponin I High Sens 11.0 Total Protein Albumin Globulin Albumin/Globulin Ratio Lipase PD Medical Decision Making - ED course Complexity details: reviewed results, re-evaluated patient, considered differential, d/w patient, d/w family ED course: This is a 72-year-old female who presents after an accidental overdose of suspected narcotic pill. The patient smoked "1 hit" of a "loopy" which she states is likely a fentanyl pill bought on the street and subsequently had a respiratory arrest. On EMS arrival however the patient was awake and alert and breathing comfortably on room air. She was brought in here for evaluation. On arrival here, she is awake and alert and Stable appearing. She had no acute concerns. She was monitored here with stable vital signs, on room air with no signs of respiratory suppression or recurrent symptoms. Her labs are largely stable. She states she was unable to provide a urine sample however does admit to smoking likely fentanyl. Her chest x-ray was a poor study but no acute findings and patient has no rib tenderness to suggest fracture, there is no signs of pneumothorax. She's remained awake, alert, on room air, and tolerating po. The patient will therefore be discharged home. She was strongly urged to stop Using narcotics, in particular street narcotics, and was counseled on the risk of overdose.We will discharge her home with a prescription for Narcan as needed. Departure - Departure Disposition: Home, Self Care Clinical Impression: Opiate or related narcotic overdose Qualifiers: Encounter type: initial encounter Injury intent: accidental or unintentional Qualified Code(s): T40.601A - Poisoning by unspecified narcotics, accidental (unintentional), initial encounter Condition: Good Instructions: ED Overdose Accidental Prescriptions: Naloxone HCl Nasal [Narcan Nasal] 1 kit RUPERT PRN PRN #1 kit PRN Reason: Per Physician Order Comments: You presented after an accidental overdose due to to narcotic use. Your labs, ekg, and evaluation here are stable. You did receive Narcan from your family which likely helped reverse the effects of the opiates. I have given you another prescription for this to have at home. We have watched you in the ER and you continue to do well therefore you are stable for discharge home. Please refrain from narcotic use in the future unless prescribed and monitored closely by a physician.
[2022-12-26 18:09] LABS: BASOPHILS # (AUTO) 0.1 10^3/uL (0.0-0.1); BASOPHILS % (AUTO) 0.9 %; EOSINOPHILS # (AUTO) 0.2 10^3/uL (0.0-0.7); EOSINOPHILS % (AUTO) 3.3 %; HCT - HEMATOCRIT 44.6 % (37.0-47.0); HGB - HEMOGLOBIN 13.5 g/dL (12.0-16.0); LYMPHOCYTES # (AUTO) 1.4 10^3/uL (1.5-3.5); LYMPHOCYTES % (AUTO) 20.7 %; MEAN CORPUSCULAR HEMOGLOBIN 27.2 pg (27.0-31.0); MEAN CORPUSCULAR HGB CONC 30.3 g/dL (32.0-36.0); MEAN CORPUSCULAR VOLUME 89.9 fL (81.0-99.0); MEAN PLATELET VOLUME 9.6 fL (7.9-10.8); MONOCYTES # (AUTO) 0.4 10^3/uL (0.0-1.0); MONOCYTES % (AUTO) 5.8 %; NEUTROPHILS # (AUTO) 4.6 10^3/uL (1.5-6.6); NEUTROPHILS % (AUTO) 68.7 %; PLT - PLATELET COUNT 223 10^3/uL (130-450); RED BLOOD COUNT 4.96 10^6/uL (4.20-5.40); RED CELL DISTRIBUTION WIDTH 14.6 % (12.0-15.0); WHITE BLOOD COUNT 6.7 x10^3/uL (4.8-10.8)
[2022-12-26 18:29] LABS: ALBUMIN 3.8 g/dL (3.2-5.5); ALBUMIN/GLOBULIN RATIO 1.2 (1.0-2.2); BILIRUBIN,TOTAL 0.6 mg/dL (0.2-1.0); CALCIUM 9.2 mg/dL (8.5-10.3); CREATININE 0.5 mg/dL (0.4-1.0); POTASSIUM 3.6 mmol/L (3.5-5.0); TOTAL PROTEIN 6.9 g/dL (6.7-8.2)
--- NOTE | 2022-12-26 18:45 | XRAY Report ---
PROCEDURE: Chest 1 View X-Ray INDICATIONS: chest pain TECHNIQUE: One view of the chest was acquired. COMPARISON: None. FINDINGS: There is significant rotation. Surgical changes and devices: None. Lungs and pleura: No pleural effusions or pneumothorax. Lungs are clear. Mediastinum: Mediastinal contours appear normal. Heart size is normal. Bones and chest wall: No suspicious bony lesions. Overlying soft tissues appear unremarkable. IMPRESSION: Limited examination due to significant rotation. No acute cardiopulmonary disease. If clinically quinten cated, a repeat examination would be helpful. Reviewed by: Leo Pantoja MD on 12/26/2022 6:44 PM PST Approved by: Leo Pantoja MD on 12/26/2022 6:44 PM PST Station ID: [id number]
[2022-12-26 20:45] VITALS: BP 138/84
== END 2022-12-26 20:45 | disposition home or self-care (01) ==
LOC: EDUNIT# → ED 17:29
DX: R40.4 Transient alteration of awareness (principal); T40.601A Poisoning by unspecified narcotics, accidental (unintentional), initial encounter
CPT/HCPCS: 36415; 80053; 83690; 84484; 85025; 93005; 99284

== ENCOUNTER 2023-03-06 08:00 | Outpatient (CLI) | payer MEDICARE, MEDICAID | END 2023-03-06 23:59 | disposition home or self-care (01) | LOC: LAB.WCP 08:00 | PROVIDERS: ATTEND Physician Assistant Medical | DX: M54.50 Low back pain, unspecified (principal); G89.29 Other chronic pain | CPT/HCPCS: 80307; 81599 ==